=== PATIENT | male | born 1940 | race Caucasian/White ===

== ENCOUNTER 2018-10-10 07:10 | Emergency (ER) | payer MEDICARE, OTHER ==
[2018-10-10] MEDS ORDERED: ACETAMINOPHEN 325 MG TABLET PO STA (07:33)
--- NOTE | 2018-10-10 07:42 | ED Physician Documentation ---
PD HPI URI - Stated complaint Stated Complaint: COUGH/CONGESTED - Chief complaint Chief Complaint: Resp - History obtained from History obtained from: Patient, Family () - History of Present Illness Timing - onset: How many weeks ago (1) Timing duration: Weeks (1) Timing details: Still present Associated symptoms: Nasal congestion, Productive cough Similar symptoms before: Diagnosis (URI) Recently seen: Clinic (Was seen by PMD 2 days ago and was prescribed guaifenesin AC.) - Additional information Additional information: The patient is a 78-year-old male who presents with "a nasty cold" that has been going on for 1 week. He reports productive cough and nasal congestion. He denies fever, chest pain, shortness of breath, headache, or sore throat. He has a history of similar symptoms, the last time being 3 or 4 years ago. His cough has been so bad he has not been able to sleep much for the past 5 days. Review of Systems Constitutional: reports: Fatigue. denies: Fever, Myalgias Eyes: denies: Discharge Ears: denies: Ear pain Nose: reports: Congestion Throat: denies: Sore throat Cardiac: denies: Chest pain / pressure Respiratory: reports: Cough. denies: Dyspnea GI: denies: Abdominal Pain, Nausea, Vomiting : denies: Dysuria Skin: denies: Rash Musculoskeletal: denies: Extremity swelling Neurologic: denies: Headache PD PAST MEDICAL HISTORY - Past Medical History Cardiovascular: Hypertension, [place] Respiratory: None Endocrine/Autoimmune: None GI: None : Benign prostate hypertrophy HEENT: Chronic vision loss, Chronic hearing loss Psych: None Musculoskeletal: Osteoarthritis Derm: None - Past Surgical History Past Surgical History: Yes General: Hiatal hernia repair Cardiovascular: Coronary stent - Present Medications Home Medications: Ambulatory Orders Medication Instructions Recorded Confirmed Clopidogrel [Plavix] 75 mg PO DAILY 10/15/13 11/03/14 Lisinopril 20 mg PO DAILY 10/15/13 11/03/14 Simvastatin 40 mg PO DAILY 10/15/13 11/03/14 Tamsulosin [Flomax] 0.4 mg PO DAILY 10/15/13 11/03/14 Benzonatate [Tessalon Perle] 100 - 200 mg PO TID PRN #30 capsule 10/10/18 - Allergies Allergies/Adverse Reactions: Allergies Allergy/AdvReac Type Severity Reaction Status Date / Time No Known Drug Allergies Allergy Verified 10/10/18 07:19 - Social History Does the pt smoke?: No Smoking Status: Never smoker Does the pt drink ETOH?: No Does the pt have substance abuse?: No - Immunizations Immunizations are current?: Yes - POLST Patient has POLST: No PD ED PE NORMAL - Vitals Vital signs reviewed: Yes (Borderline hypertension initially.) - General General: Alert and oriented X 3, Well developed/nourished - HEENT HEENT: Atraumatic, EOMI, Pharynx benign, Other (Conjunctiva are injected appearing bilaterally.) - Neck Neck: Supple, no meningeal sign, No adenopathy, No JVD - Cardiac Cardiac: RRR - Respiratory Respiratory: Clear bilaterally, Other (Cough, without wheezing, rales or rhonchi.) - Abdomen Abdomen: Soft, Non tender - Back Back: No CVA TTP - Derm Derm: No rash - Extremities Extremities: No edema, No calf tenderness / cord - Neuro Neuro: Alert and oriented X 3, No motor deficit, Normal speech Results - Vitals Vitals: Vital Signs - 24 hr 10/10/18 10/10/18 07:16 07:42 Temperature 37.2 C Heart Rate 84 Respiratory 20 Rate Blood Pressure 143/84 H 153/86 H O2 Saturation 97 Oxygen O2 Source Room air - Labs Labs: Laboratory Tests 10/10/18 07:37 Influenza A (Rapid) Negative Influenza B (Rapid) Negative - Rads (name of study) CXR Radiology: Prelim report reviewed, EMP read contemporaneously, See rad report (No radiographic evidence of acute cardiopulmonary disease.) PD MEDICAL DECISION MAKING - ED course Complexity details: reviewed old records, reviewed results, re-evaluated patient, considered differential, d/w patient, d/w family ED course: The patient's presentation is most consistent with viral respiratory infection. Influenza swab is negative, and chest x-ray reveals no acute infiltrate or effusion. Treatment in the emergency department included administration of acetaminophen 650 mg orally. I discussed with him and his the expected course of illness, symptomatic treatment and outpatient follow-up, as well as potentially worrisome signs or symptoms that should prompt reevaluation in the emergency department. He is being discharged with a prescription for Tessalon. Departure - Departure Disposition: 01 Home, Self Care Clinical Impression: Viral URI with cough Condition: Stable Instructions: ED URI Viral Follow-Up: Dorian Byrd MD [Provider Admit Priv/Credential] - Prescriptions: Benzonatate [Tessalon Perle] 100 - 200 mg PO TID PRN #30 capsule PRN Reason: Cough Comments: Your symptoms are most consistent with a viral upper respiratory infection. Antibiotics are not clinically indicated for this type of viral infection. Treatment should be geared toward managing symptoms: Drink plenty of fluids. Use Tylenol or ibuprofen as needed for fever or discomfort. You can use Tessalon as prescribed if needed for cough. Wash your hands frequently, and cover your cough. Follow up with your primary physician, or return to the emergency department, if not improving within 1-2 weeks. Return to the emergency department if you develop increasing difficulty breathing, or otherwise worsening symptoms.
[2018-10-10 07:44] VITALS: BP 153/86
--- NOTE | 2018-10-10 08:35 | XRAY Report ---
Reason: productive cough Procedure Date: 10/10/2018 Accession Number: [id number] / [id number] Procedure: XR - Chest 2 View X-Ray CPT Code: 94830 FULL RESULT: EXAM: CHEST RADIOGRAPHY EXAM DATE: 10/10/2018 08:23 AM. CLINICAL HISTORY: Productive cough. COMPARISON: 10/15/2013 9:42 PM. TECHNIQUE: 2 views. FINDINGS: Lungs/Pleura: No focal opacities evident. No pleural effusion. No pneumothorax. Normal volumes. Mediastinum: Heart and mediastinal contours are unremarkable. Stable mild ectasia of the descending thoracic aorta. Other: None. IMPRESSION: No radiographic evidence of acute cardiopulmonary disease. RADIA
== END 2018-10-10 09:22 | disposition home or self-care (01) ==
LOC: ED 07:10
DX: J06.9 Acute upper respiratory infection, unspecified (principal); I10 Essential (primary) hypertension; Z79.02 Long term (current) use of antithrombotics/antiplatelets
CPT/HCPCS: 71046; 87275; 87276; 99283; A9270

== ENCOUNTER 2019-11-06 10:07 | Outpatient (CLI) | payer MEDICARE, OTHER ==
[2019-11-06 10:31] LABS: BASOPHILS % (AUTO) 0.5 %; EOSINOPHILS # (AUTO) 0.2 10^3/uL (0.0-0.7); EOSINOPHILS % (AUTO) 3.4 %; HGB - HEMOGLOBIN 13.8 g/dL (14.0-18.0); LYMPHOCYTES # (AUTO) 1.1 10^3/uL (1.5-3.5); LYMPHOCYTES % (AUTO) 17.3 %; MEAN CORPUSCULAR HEMOGLOBIN 33.7 pg (27.0-31.0); MEAN CORPUSCULAR HGB CONC 33.3 g/dL (32.0-36.0); MEAN CORPUSCULAR VOLUME 101.5 fL (80.0-94.0); MEAN PLATELET VOLUME 10.6 fL (7.4-11.4); MONOCYTES # (AUTO) 0.5 10^3/uL (0.0-1.0); MONOCYTES % (AUTO) 8.3 %; NEUTROPHILS # (AUTO) 4.6 10^3/uL (1.5-6.6); NEUTROPHILS % (AUTO) 70.2 %; PLT - PLATELET COUNT 190 10^3/uL (130-450); RED BLOOD COUNT 4.09 10^6/uL (4.70-6.10); RED CELL DISTRIBUTION WIDTH 13.5 % (12.0-15.0); WHITE BLOOD COUNT 6.5 x10^3/uL (4.8-10.8)
[2019-11-06 10:44] LABS: ALBUMIN/GLOBULIN RATIO 1.5 (1.0-2.2); ALKALINE PHOSPHATASE 84 IU/L (42-121); ALT ALANINE AMINOTRANSFERASE 18 IU/L (10-60); AST ASPARTATE AMINOTRANSFERASE 22 IU/L (10-42); BILIRUBIN,TOTAL 0.8 mg/dL (0.2-1.0); BUN - BLOOD UREA NITROGEN 34 mg/dL (6-20); CALCIUM 8.4 mg/dL (8.5-10.3); CARBON DIOXIDE - CO2 28 mmol/L (21-32); CHLORIDE 102 mmol/L (101-111); CHOL/HDL RATIO 3.6 (<5.0); CHOLESTEROL 214 mg/dL; CREATININE 0.9 mg/dL (0.6-1.2); GLUCOSE 105 mg/dL (70-100); HDL CHOLESTEROL 59 mg/dL; LDL CHOLESTEROL,CALCULATED 143 mg/dL; LDL/HDL RATIO 2.4 (<3.6); SODIUM 136 mmol/L (135-145); TOTAL PROTEIN 6.7 g/dL (6.7-8.2); VLDL CHOLESTEROL 12 mg/dL
== END 2019-11-06 10:08 | disposition home or self-care (01) ==
LOC: LAB 10:07
PROVIDERS: ATTEND Internal Medicine Cardiovascular Disease
DX: I25.10 Atherosclerotic heart disease of native coronary artery without angina pectoris (principal); G45.4 Transient global amnesia
CPT/HCPCS: 36415; 80053; 80061; 83721; 85025

== ENCOUNTER 2019-11-21 08:51 | Outpatient (CLI) | payer MEDICARE, OTHER ==
[2019-11-21] MEDS ORDERED: IOVERSOL 320 100 ML VIAL IVP ONE ×2 (09:01→09:30)
--- NOTE | 2019-11-21 13:01 | CT Report ---
Reason: TRANSIENT GLOBAL AMNESIA Procedure Date: 11/21/2019 Accession Number: [id number] / [id number] Procedure: CT - ANGIO HEAD W/WO CPT Code: Final Report FULL RESULT: EXAM: CT ANGIOGRAM HEAD. CT SCAN OF THE HEAD WITHOUT AND WITH CONTRAST. EXAM DATE: 11/21/2019 09:29 AM CLINICAL HISTORY: 79-year-old man with transient global amnesia. COMPARISON: None. TECHNIQUE: - CT Scan Head: Using a multidetector scanner, axial images were acquired from the foramen magnum to the skull vertex prior to and following contrast administration. - CT Angiogram: Using a multidetector scanner, high-resolution axial images were acquired from the skull base through vertex following rapid infusion of intravenous contrast. Reformats: Multiplanar MIP reformats were reconstructed. NASCET criteria used for stenosis measurement. IV Contrast: 80 cc OPTIRAY 320. In accordance with CT protocol optimization, one or more of the following dose reduction techniques were utilized for this exam: automated exposure control, adjustment of mA and/or KV based on patient size, or use of iterative reconstructive technique. FINDINGS: NONCONTRAST HEAD: Parenchyma: No evidence of acute infarct, hemorrhage, or mass lesion. Irregular hypoattenuation is present in the left thalamus and overlying singer radiata, suspicious for remote infarct. There is also mild to moderate hypoattenuation in the periventricular and deep cerebral white matter, most consistent with sequelae of chronic small vessel ischemic disease. Ventricles and Extra-axial Spaces: Ventricles are symmetric and normal in size for age. No extra-axial hemorrhage or fluid collection. Orbits: Unremarkable except for left-sided lens replacement surgery. Sinuses: Mild mucosal thickening is present in the maxillary sinuses bilaterally. Mastoid air cells are clear. Extracranial Soft Tissues and Bones: Soft tissues are unremarkable. No fractures. CTA HEAD: RIGHT: - Visualized Internal Carotid: Patent without significant stenosis or aneurysm. There is mild atherosclerotic plaque along the siphon. - Anterior Cerebral: Patent without significant stenosis or aneurysm. - Middle Cerebral: Patent without significant stenosis or aneurysm. Calcified atherosclerotic plaque is present along the distal M1 segment and bifurcation. - Posterior Cerebral: Patent without significant stenosis or aneurysm. - Posterior Communicating: Patent. No aneurysm. - Visualized Vertebral: Patent without significant stenosis or dissection. The PICA is patent. LEFT: - Visualized Internal Carotid: Patent without significant stenosis or aneurysm. There is mild atherosclerotic plaque along the siphon. - Anterior Cerebral: Patent without significant stenosis or aneurysm. - Middle Cerebral: Patent without aneurysm. There is moderate stenosis (50-70% luminal narrowing) of the proximal temporal M2 branch (for example, image 67, series 13). Calcified atherosclerotic plaque is present along the M1 segment. - Posterior Cerebral: Patent without significant stenosis or aneurysm. - Posterior Communicating: Patent. No aneurysm. - Visualized Vertebral: Patent without significant stenosis or dissection. Scattered calcified atherosclerotic plaque is present along the intradural segment. The left vertebral artery is dominant. The PICA is patent, supplied as an AICA-PICA complex. CENTRAL: - Anterior Communicating: Patent. No aneurysm. - Basilar: Patent without significant stenosis, dissection, or aneurysm. POSTCONTRAST HEAD: No abnormal enhancement. IMPRESSION: CT Head: 1. No acute intracranial abnormality. Specifically, no evidence of acute infarct, hemorrhage, or mass lesion. 2. Irregular defect in the right thalamus and overlying singer radiata, suspicious for remote lacunar infarct. 3. Moderate white matter changes, most consistent with sequelae of chronic small vessel ischemic disease. CTA Head: 1. Moderate stenosis (this is 50-70% luminal narrowing) of the proximal left MCA temporal M2 branch. 3. Scattered atherosclerotic plaque along the intracranial carotid arteries, bilateral MCAs, and left vertebral artery. RADIA
--- NOTE | 2019-11-21 13:04 | CT Report ---
Reason: TRANSIENT GLOBAL AMNESIA Procedure Date: 11/21/2019 Accession Number: [id number] / [id number] Procedure: CT - ANGIO NECK W CPT Code: Final Report FULL RESULT: EXAM: CT ANGIOGRAM NECK EXAM DATE: 11/21/2019 09:29 AM. CLINICAL HISTORY: 79-year-old man with transient global amnesia. COMPARISON: None. TECHNIQUE: Routine axial helical imaging was performed from the skull base through the aortic arch. Reconstructions: Routine multiplanar 3D MIP reconstructions. IV Contrast: OPTIRAY 320. Evaluation of arterial stenosis is based on a NASCET method of measurement. In accordance with CT protocol optimization, one or more of the following dose reduction techniques were utilized for this exam: automated exposure control, adjustment of mA and/or KV based on patient size, or use of iterative reconstructive technique. FINDINGS: RIGHT: - Common and Internal Carotid: Patent without signficant stenosis. Calcified atherosclerotic plaque is present at the bifurcation. Stenosis by NASCET criteria: 0%. Scattered calcified atherosclerotic plaque is also present along the proximal and distal cervical ICA. No evidence of dissection. - External Carotid: Unremarkable. - Vertebral: Patent without significant stenosis. No evidence of dissection. LEFT: - Common and Internal Carotid: Patent without signficant stenosis. Calcified atherosclerotic plaque is present at the bifurcation and proximal cervical ICA. Stenosis by NASCET criteria: 0%. No evidence of dissection. - External Carotid: Unremarkable. - Vertebral: Patent without significant stenosis. Left vertebral artery is dominant. No evidence of dissection. SOFT TISSUES AND BONES: Visualized soft tissues are unremarkable. Lung apices are clear. No evidence of acute fracture or malalignment of the cervical spine, but there are multilevel degenerative changes. IMPRESSION: 1. Carotid and vertebral arteries are patent without significant stenosis or dissection. RADIA
== END 2019-11-21 08:52 | disposition home or self-care (01) ==
LOC: DI 08:51
PROVIDERS: ATTEND Internal Medicine Cardiovascular Disease
DX: R93.0 Abnormal findings on diagnostic imaging of skull and head, not elsewhere classified (principal); I66.02 Occlusion and stenosis of left middle cerebral artery; I65.23 Occlusion and stenosis of bilateral carotid arteries; I67.2 Cerebral atherosclerosis; I25.10 Atherosclerotic heart disease of native coronary artery without angina pectoris
CPT/HCPCS: 70496; 70498; Q9967

== ENCOUNTER 2020-02-17 09:05 | Outpatient (CLI) | payer MEDICARE, OTHER ==
[2020-02-17 09:34] LABS: CHOL/HDL RATIO 2.6 (<5.0); CHOLESTEROL 138 mg/dL; HDL CHOLESTEROL 54 mg/dL; LDL CHOLESTEROL,CALCULATED 73 mg/dL; LDL/HDL RATIO 1.4 (<3.6); VLDL CHOLESTEROL 11 mg/dL
== END 2020-02-17 09:06 | disposition home or self-care (01) ==
LOC: LAB 09:05
PROVIDERS: ATTEND Internal Medicine Cardiovascular Disease
DX: E78.49 Other hyperlipidemia (principal)
CPT/HCPCS: 36415; 80061; 83721

== ENCOUNTER 2020-03-08 13:43 | Outpatient (CLI) | payer MEDICARE, OTHER | END 2020-03-08 13:44 | disposition home or self-care (01) | LOC: COV 13:43 | PROVIDERS: ATTEND Family Medicine | DX: Z20.828 Contact with and (suspected) exposure to other viral communicable diseases (principal) ==

== ENCOUNTER 2020-05-14 09:38 | Outpatient (CLI) | payer MEDICARE, OTHER | END 2020-05-14 09:39 | disposition home or self-care (01) | LOC: LAB 09:38 | PROVIDERS: ATTEND Internal Medicine Cardiovascular Disease | DX: I25.10 Atherosclerotic heart disease of native coronary artery without angina pectoris (principal); I10 Essential (primary) hypertension | CPT/HCPCS: 80048 ==

== ENCOUNTER 2021-04-03 13:07 | Emergency (ER) | payer MEDICARE, OTHER ==
[2021-04-03 13:40] LABS: BASOPHILS % (AUTO) 0.4 %; EOSINOPHILS # (AUTO) 0.1 10^3/uL (0.0-0.7); EOSINOPHILS % (AUTO) 1.3 %; HCT - HEMATOCRIT 40.5 % (42.0-52.0); HGB - HEMOGLOBIN 13.6 g/dL (14.0-18.0); LYMPHOCYTES # (AUTO) 0.9 10^3/uL (1.5-3.5); LYMPHOCYTES % (AUTO) 12.5 %; MEAN CORPUSCULAR HEMOGLOBIN 33.9 pg (27.0-31.0); MEAN CORPUSCULAR HGB CONC 33.6 g/dL (32.0-36.0); MEAN PLATELET VOLUME 10.4 fL (7.4-11.4); MONOCYTES # (AUTO) 0.5 10^3/uL (0.0-1.0); MONOCYTES % (AUTO) 6.7 %; NEUTROPHILS # (AUTO) 5.9 10^3/uL (1.5-6.6); NEUTROPHILS % (AUTO) 78.7 %; PLT - PLATELET COUNT 185 10^3/uL (130-450); RED BLOOD COUNT 4.01 10^6/uL (4.70-6.10); RED CELL DISTRIBUTION WIDTH 13.5 % (12.0-15.0); WHITE BLOOD COUNT 7.5 x10^3/uL (4.8-10.8)
--- NOTE | 2021-04-03 13:57 | XRAY Report ---
PROCEDURE: Chest 1 View X-Ray INDICATIONS: Chest pain TECHNIQUE: One view of the chest was acquired. COMPARISON: Chest radiograph 10/10/2018 FINDINGS: Surgical changes and devices: None. Lungs and pleura: No pleural effusions or pneumothorax. Chronic lung markings are seen bilaterally. No acute cardiopulmonary opacity is seen. Mediastinum: Mediastinal contours appear normal. Heart size is normal. Bones and chest wall: No suspicious bony lesions. Overlying soft tissues appear unremarkable. IMPRESSION: No acute cardiopulmonary abnormality. Reviewed by: Joe Harrington MD on 04/03/2021 1:56 PM PDT Approved by: Joe Harrington MD on 04/03/2021 1:56 PM PDT Station ID: [id number]
[2021-04-03 13:58] LABS: ALBUMIN 4.4 g/dL (3.2-5.5); ALBUMIN/GLOBULIN RATIO 1.8 (1.0-2.2); BILIRUBIN,TOTAL 0.9 mg/dL (0.2-1.0); POTASSIUM 4.5 mmol/L (3.5-5.0); TOTAL PROTEIN 6.8 g/dL (6.7-8.2)
--- NOTE | 2021-04-03 15:50 | ED Physician Documentation ---
History of Present Illness - Stated complaint Stated Complaint: CHEST PX - Chief complaint Chief Complaint: Cardiac - History obtained from History obtained from: Patient - Additonal information Additional information: Patient comes emergency department chief complaint of left chest discomfort with radiation to left shoulder intermittently over the last week. Patient states that the symptoms are very random and he usually notices them when he stops being active and does not have anything else going on. He denies any onset or worsening of the symptoms with exertion, even with walking around his house or going up the stairs. He denies any associated symptoms such as shortness of breath, nausea, lightheadedness, or facial sweating. The patient is pain-free currently. He states her symptoms are not really pain but just a "awareness" of his shoulder and arm being there. The worst the discomfort of her is is about 2 out of 10. Nothing makes it better or worse. He has a history of coronary josé miguel ry disease and had a stent placed 20 years ago, and regular Jaswant follows with Dr. Mercado of cardiology. He states he has been prescribed nitro in the past but has never taken it. Patient denies any dyspnea on exertion. No swelling in his lower extremities. He states he otherwise feels fairly well. Patient thinks his next appointment with Dr. Mercado is in about a month. Review of Systems Ten Systems: 10 systems reviewed and negative Constitutional: reports: Reviewed and negative Eyes: reports: Reviewed and negative Ears: reports: Reviewed and negative Nose: reports: Reviewed and negative Throat: reports: Reviewed and negative Cardiac: reports: Chest pain / pressure Respiratory: reports: Reviewed and negative GI: reports: Reviewed and negative : reports: Reviewed and negative Skin: reports: Reviewed and negative Musculoskeletal: reports: Reviewed and negative Neurologic: reports: Reviewed and negative Psychiatric: reports: Reviewed and negative Endocrine: reports: Reviewed and negative Immunocompromised: reports: Reviewed and negative PD PAST MEDICAL HISTORY - Past Medical History Cardiovascular: Hypertension, [place] Respiratory: None Endocrine/Autoimmune: None GI: None : Benign prostate hypertrophy HEENT: Chronic vision loss, Chronic hearing loss Psych: None Musculoskeletal: Osteoarthritis Derm: None - Past Surgical History Past Surgical History: Yes General: Hiatal hernia repair Cardiovascular: Coronary stent - Present Medications Home Medications: Ambulatory Orders Medication Instructions Recorded Confirmed Clopidogrel [Plavix] 75 mg PO DAILY 10/15/13 11/03/14 Lisinopril 20 mg PO DAILY 10/15/13 11/03/14 Simvastatin 40 mg PO DAILY 10/15/13 11/03/14 Tamsulosin [Flomax] 0.4 mg PO DAILY 10/15/13 11/03/14 Benzonatate [Tessalon Perle] 100 - 200 mg PO TID PRN #30 capsule 10/10/18 Nitroglycerin [Nitrostat] 0.4 mg SL Q5MIN PRN #20 tablet 04/03/21 - Allergies Allergies/Adverse Reactions: Allergies Allergy/AdvReac Type Severity Reaction Status Date / Time No Known Drug Allergies Allergy Verified 04/03/21 13:14 - Social History Does the pt smoke?: No Smoking Status: Never smoker Does the pt drink ETOH?: No Does the pt have substance abuse?: No - Immunizations Immunizations are current?: Yes - POLST Patient has POLST: No PD ED PE NORMAL - Vitals Vital signs reviewed: Yes - General General: Alert and oriented X 3, No acute distress, Well developed/nourished - HEENT HEENT: Atraumatic, PERRL, EOMI, Moist mucous membranes - Neck Neck: Supple, no meningeal sign - Cardiac Cardiac: RRR, No murmur, Strong equal pulses - Respiratory Respiratory: No respiratory distress, Clear bilaterally - Abdomen Abdomen: Soft, Non tender, Non distended - Derm Derm: Normal color, Warm and dry, No rash - Extremities Extremities: No deformity, No edema, No calf tenderness / cord - Neuro Neuro: Alert and oriented X 3, medical coder 2-12 intact, Normal speech - Psych Psych: Normal mood, Normal affect Results - Vitals Vitals: Vital Signs - 24 hr 04/03/21 04/03/21 04/03/21 13:14 15:55 16:46 Temperature 36.5 C Heart Rate 68 59 L 60 Respiratory 16 18 21 Rate Blood Pressure 124/68 152/83 H 135/76 H O2 Saturation 97 99 100 Oxygen O2 Source Room air - EKG (time done) 1312 Rate: Rate (enter#) (68) Rhythm: NSR [place]: Normal Intervals: Other (IVCD) QRS: Normal Ischemia: Other (Diffuse ST elevation secondary to interventricular conduction delay.) Compare to prior EKG: Changed from prior EKG (Most recent available is in 2013. Intraventricular conduction delay not present then.) Computer interpretation: Agree with computer - Labs Labs: Laboratory Tests 04/03/21 04/03/21 04/03/21 13:35 13:35 13:35 WBC 7.5 RBC 4.01 L Hgb 13.6 L Hct 40.5 L MCV 101.0 H MCH 33.9 H MCHC 33.6 RDW 13.5 Plt Count 185 MPV 10.4 Neut # (Auto) 5.9 Lymph # (Auto) 0.9 L [place] # (Auto) 0.5 Eos # (Auto) 0.1 Baso # (Auto) 0.0 Absolute Nucleated RBC 0.00 Nucleated RBC % 0.0 Sodium 139 Potassium 4.5 Chloride 101 Carbon Dioxide 27 Anion Gap 11.0 BUN 25 H Creatinine 1.0 Estimated GFR (MDRD) 72 L Glucose 112 H Calcium 9.0 Total Bilirubin 0.9 AST 22 ALT 23 Alkaline Phosphatase 77 Troponin I High Sens 6.7 Total Protein 6.8 Albumin 4.4 Globulin 2.4 Albumin/Globulin Ratio 1.8 Lipase 27 04/03/21 15:53 WBC RBC Hgb Hct MCV MCH MCHC RDW Plt Count MPV Neut # (Auto) Lymph # (Auto) [place] # (Auto) Eos # (Auto) Baso # (Auto) Absolute Nucleated RBC Nucleated RBC % Sodium Potassium Chloride Carbon Dioxide Anion Gap BUN Creatinine Estimated GFR (MDRD) Glucose Calcium Total Bilirubin AST ALT Alkaline Phosphatase Troponin I High Sens 7.5 Total Protein Albumin Globulin Albumin/Globulin Ratio Lipase - Rads (name of study) chest XR Radiology: Final report received, EMP read indepedently, See rad report (Negative) PD MEDICAL DECISION MAKING - ED course Complexity details: reviewed results, re-evaluated patient, considered differential, d/w patient ED course: Patient was worked up with labs, EKG, and chest x-ray all of which were unremarkable, including initial troponin. Repeat troponin was also sent and negative. Patient was asymptomatic in the emergency department. We have discussed that he should plan to call Dr. Mercado's office first thing tomorrow and make sure his appointment is moved up to within the next couple of weeks. I will prescribe him nitroglycerin, which you may take when he gets the discomfort. Patient understands that if his pain in any way begins to significantly worsen, he should return immediately to the emergency department. Departure - Departure Disposition: 01 Home, Self Care Clinical Impression: Chest pain Qualifiers: Chest pain type: unspecified Qualified Code(s): R07.9 - Chest pain, unspecified Condition: Stable Instructions: ED Chest Pain Atypical Unkn Cause Prescriptions: Nitroglycerin [Nitrostat] 0.4 mg SL Q5MIN PRN #20 tablet PRN Reason: Chest Pain Comments: Your labs, EKG, and chest x-ray all look good. Your repeat cardiac enzymes also are normal. Please call Dr. Mercado's office first thing tomorrow to reschedule your follow-up appointment for within the next couple of weeks instead of a month or two from now. You may take the nitroglycerin as needed for your di scomfort. If your pain gets worse and persists, please return to the emergency department. Discharge Date/Time: 04/03/21 16:47
[2021-04-03 16:48] VITALS: BP 135/76
== END 2021-04-03 16:47 | disposition home or self-care (01) ==
LOC: ED 13:07
DX: R07.9 Chest pain, unspecified (principal)
CPT/HCPCS: 36415; 80053; 83690; 84484; 85025; 93005; 99284

== ENCOUNTER 2021-04-24 16:14 | Outpatient (CLI) | payer MEDICARE, OTHER | END 2021-04-24 16:15 | disposition critical access hospital (66) | LOC: EMS 16:14 | DX: Z04.3 Encounter for examination and observation following other accident (principal) | CPT/HCPCS: A0425; A0429 ==

== ENCOUNTER 2021-04-24 16:36 | Inpatient (IN) | payer MEDICARE, OTHER ==
--- NOTE | 2021-04-24 16:49 | ED Physician Documentation ---
PD HPI LOWER EXT INJURY - Stated complaint Stated Complaint: GLF - Chief complaint Chief Complaint: Trauma Ext - History obtained from History obtained from: Patient, EMS - History of Present Illness PD HPI LOW EXT INJURY LOCATION: Left, Hip Type of injury: Fall Where injury occurred: Home Timing - onset: How many hours ago (1) Timing - duration: Hours (1) Pain level max: 7 Pain level now: 3 Improved by: Rest, Ice, Immobilization Worsened by: Moving, Palpating Associated symptoms: No: Weakness, Numbness, Tingling, Swelling Contributing factors: No: Anticoagulated, Prior ortho surgery Recently seen: Not recently seen - Additional information Additional information: Patient is an 81-year-old male who presents to the emergency department after falling while walking back to his car today, tripped and fell. He states landed on his left hip and has left hip pain. Worse with movement, better with rest. Brought in by EMS. Patient declined any pain medication or IV en route. Patient is not on blood thinners. Did not strike his head. The only pain is to the left hip. Review of Systems Ten Systems: 10 systems reviewed and negative Constitutional: denies: Fever, Chills Cardiac: denies: Chest pain / pressure Respiratory: denies: Cough GI: denies: Nausea, Vomiting, Diarrhea Skin: denies: Rash Musculoskeletal: denies: Neck pain, Back pain Neurologic: denies: Focal weakness, Numbness, Headache PD PAST MEDICAL HISTORY - Past Medical History Cardiovascular: Hypertension, [place] Respiratory: None Endocrine/Autoimmune: None GI: None : Benign prostate hypertrophy HEENT: Chronic vision loss, Chronic hearing loss Psych: None Musculoskeletal: Osteoarthritis Derm: None - Past Surgical History Past Surgical History: Yes General: Hiatal hernia repair Cardiovascular: Coronary stent - Present Medications Home Medications: Ambulatory Orders Medication Instructions Recorded Confirmed Lisinopril 20 mg PO DAILY 10/15/13 11/03/14 Tamsulosin [Flomax] 0.4 mg PO DAILY 10/15/13 11/03/14 Nitroglycerin [Nitrostat] 0.4 mg SL Q5MIN PRN #20 tablet 04/03/21 Rosuvastatin Calcium [Crestor] 10 mg PO QPM 04/24/21 - Allergies Allergies/Adverse Reactions: Allergies Allergy/AdvReac Type Severity Reaction Status Date / Time No Known Drug Allergies Allergy Verified 04/24/21 16:41 - Social History Does the pt smoke?: No Smoking Status: Never smoker Does the pt drink ETOH?: No Does the pt have substance abuse?: No - Immunizations Immunizations are current?: Yes - POLST Patient has POLST: No PD ED PE NORMAL - Vitals Vital signs reviewed: Yes - General General: Alert and oriented X 3, No acute distress - HEENT HEENT: Atraumatic, PERRL, Moist mucous membranes - Neck Neck: Supple, no meningeal sign, No bony TTP - Cardiac Cardiac: RRR, Strong equal pulses - Respiratory Respiratory: No respiratory distress, Clear bilaterally - Abdomen Abdomen: Soft, Non tender, Non distended - Back Back: No spinal TTP - Derm Derm: Warm and dry - Extremities Extremities: No deformity, Other (Tenderness to palpation over the left greater trochanter. Leg held in flexion. Limited range of motion secondary to pain. Neurovascularly intact. Pelvis stable. Otherwise normal exam of the extremities) - Neuro Neuro: Alert and oriented X 3, ld teacher 2-12 intact, No motor deficit, No sensory deficit, Normal speech - Psych Psych: Normal mood, Normal affect Results - Vitals Vitals: Vital Signs - 24 hr 04/24/21 16:41 Temperature 36.6 C Heart Rate 65 Respiratory 18 Rate Blood Pressure 159/85 H O2 Saturation 99 Oxygen O2 Source Room air - EKG (time done) 1744 Rate: Rate (enter#) Rhythm: NSR Intervals: LBBB - Labs Labs: Laboratory Tests 04/24/21 17:42 WBC 8.1 RBC 4.04 L Hgb 13.7 L Hct 40.3 L MCV 99.8 H MCH 33.9 H MCHC 34.0 RDW 13.3 Plt Count 166 MPV 10.5 Neut # (Auto) 6.3 Lymph # (Auto) 1.0 L [place] # (Auto) 0.6 Eos # (Auto) 0.2 Baso # (Auto) 0.0 Absolute Nucleated RBC 0.00 Nucleated RBC % 0.0 - Rads (name of study) L hip xray Radiology: Final report received, EMP read contemporaneously, See rad report (impacted L femoral neck fracture) cxr Radiology: Final report received, EMP read contemporaneously, See rad report (No acute abnormality) PD MEDICAL DECISION MAKING - ED course Complexity details: reviewed results, re-evaluated patient, considered differential, d/w patient, d/w residential sales consultant ED course: 81-year-old male with a mildly impacted left femoral neck fracture. Discussed with Dr. Vogel, orthopedics who recommends admission to the hospitalist for further care. He will consult on the patient and plan for OR repair. Pain well controlled. Neurovascular intact. Discussed the case with Dr. Saravia, hospitalist who accepts This document was made in part using voice recognition software. While efforts are made to proofread this document, sound alike and grammatical errors may occur. Departure - Departure Disposition: [facility] DC/Xfer Clinical Impression: Fracture of left hip Qualifiers: Encounter type: initial encounter Fracture type: closed Qualified Code(s): S72.002A - Fracture of unspecified part of neck of left femur, initial encounter for closed fracture Condition: Stable Discharge Date/Time: 04/24/21 18:21
[2021-04-24] MEDS ORDERED: PROMETHAZINE 25 MG/1 ML VIAL IM PRN (17:45)
[2021-04-24] MEDS ORDERED: ONDANSETRON ODT 4 MG TABLET TL PRN (17:45)
[2021-04-24] MEDS ORDERED: ACETAMINOPHEN 325 MG TABLET PO PRN (17:45)
[2021-04-24] MEDS ORDERED: SODIUM CHLORIDE FLUSH 0.9% 10 ML SYRINGE IVP PRN (17:45)
[2021-04-24] MEDS ORDERED: MORPHINE 2 MG/ML CARPUJECT IVP STA (17:55)
[2021-04-24 18:08] LABS: BASOPHILS % (AUTO) 0.4 %; EOSINOPHILS # (AUTO) 0.2 10^3/uL (0.0-0.7); EOSINOPHILS % (AUTO) 1.9 %; HCT - HEMATOCRIT 40.3 % (42.0-52.0); HGB - HEMOGLOBIN 13.7 g/dL (14.0-18.0); LYMPHOCYTES % (AUTO) 12.6 %; MEAN CORPUSCULAR HEMOGLOBIN 33.9 pg (27.0-31.0); MEAN CORPUSCULAR VOLUME 99.8 fL (80.0-94.0); MEAN PLATELET VOLUME 10.5 fL (7.4-11.4); MONOCYTES # (AUTO) 0.6 10^3/uL (0.0-1.0); MONOCYTES % (AUTO) 6.8 %; NEUTROPHILS # (AUTO) 6.3 10^3/uL (1.5-6.6); NEUTROPHILS % (AUTO) 77.7 %; PLT - PLATELET COUNT 166 10^3/uL (130-450); RED BLOOD COUNT 4.04 10^6/uL (4.70-6.10); RED CELL DISTRIBUTION WIDTH 13.3 % (12.0-15.0); WHITE BLOOD COUNT 8.1 x10^3/uL (4.8-10.8)
[2021-04-24 18:17] LABS: INR 1.1 (0.8-1.2); PT - PROTHROMBIN TIME 12.5 secs (9.9-12.6)
--- NOTE | 2021-04-24 18:22 | HISTORY & PHYSICAL EXAMINATION ---
Chief Complaint - Chief Complaint Chief Complaint: Left Hip Pain History of Present Illness - Admitted From Admitted From:: Emergency Department - History Obtained From Records Reviewed: ED History obtained from: Patient and Dr Fay Exam Limitations: None - History of Present Illness HPI Comment/Other: Kedar is an 81-year-old male, as of today (1940), who is a fairly healthy and active gentleman who fell while coming off the boat onto the dock and presumably landed on his left side and has sustained a left hip fracture. He presented to the emergency department for left hip pain.He has a past medical history sugge stive of coronary artery disease status post stent more than 10 years ago,Hyperlipidemia, hypertension, and BPH as well as a currently being worked up for left-sided foot drop and balance disturbance. Patient states he is currently in physical therapy for this problem. He has been seen by neurosevans nelson for the left foot drop but has not had surgery and was referred to physical therapy. He does not have a diagnosis yet. He is not sure if this contributed to the fall which led to him breaking his left hip. In the emergency room, his evaluation was inclusive of lab work, with results not yet available, and a hip x-ray, again with report not yet available but per Dr. Dumont, showing a impacted left femoral neck fracture. Orthopedic surgery was consulted by the ED, and has been accepted for surgery tomorrow and hospitalist service was requested to admit the patient.At the time of admission, EKG was not yet obtained, nor was Chest x-ray. History - Past Medical History Cardiovascular: reports: Hypertension, High cholesterol, Coronary artery disease, [place] Respiratory: reports: None Neuro: reports: Other (Left foot drop which is currently being worked up by neurosurgery) Endocrine/Autoimmune: reports: None GI: reports: None : reports: Benign prostate hypertrophy HEENT: reports: Chronic vision loss, Chronic hearing loss Psych: reports: None Musculoskeletal: reports: Osteoarthritis Derm: reports: None MRSA Hx?: No - Past Surgical History General: reports: Hiatal hernia repair Cardiovascular: reports: Coronary stent - POLST Patient has POLST: No Meds/Allgy - Home Medications Home Medications: Ambulatory Orders Medication Instructions Recorded Confirmed Clopidogrel [Plavix] 75 mg PO DAILY 10/15/13 11/03/14 Lisinopril 20 mg PO DAILY 10/15/13 11/03/14 Simvastatin 40 mg PO DAILY 10/15/13 11/03/14 Tamsulosin [Flomax] 0.4 mg PO DAILY 10/15/13 11/03/14 Benzonatate [Tessalon Perle] 100 - 200 mg PO TID PRN #30 capsule 10/10/18 Nitroglycerin [Nitrostat] 0.4 mg SL Q5MIN PRN #20 tablet 04/03/21 - Allergies Allergies/Adverse Reactions: Allergies Allergy/AdvReac Type Severity Reaction Status Date / Time No Known Drug Allergies Allergy Verified 04/24/21 16:41 Prior Level of Functionality: Ambulatory, active, exercises a couple of times a week, including water aerobics Exam - Vital Signs Reviewed Vital Signs: Yes Vital Signs: Vital Signs x48h Temp Pulse Resp BP Pulse Ox 04/24/21 18:11 58 L 16 154/82 H 100 04/24/21 16:41 36.6 C 65 18 159/85 H 99 - Physical Exam General Appearance: positive: No acute distress, Alert Eyes Bilateral: positive: Normal inspection, PERRL, EOMI ENT: positive: ENT inspection nml, Pharynx nml, No signs of dehydration Neck: positive: Nml inspection, Thyroid nml, No JVD Respiratory: positive: Chest non-tender, No respiratory distress, Breath sounds nml Cardiovascular: positive: Regular rate & rhythm, No murmur, No gallop Peripheral Pulses: positive: 2+ Abdomen: positive: Non-tender, No organomegaly, Nml bowel sounds, No distention Skin: positive: Color nml Extremities: positive: Nml appearance, No pedal edema, Other (Hip flexed, left knee flexed). negative: Pedal edema Conclusion/Plan - Problem List (1) Fracture of left hip Conclusion/Plan: Left hip fracture reviewed by orthopedic surgery Patient will be taken to the OR tomorrow Admit to [facility] N[facility] after midnight SCDs for anticoagulation until after surgery Given patient's history of CAD and age for risk ratification will check chest x- ray and EKG Qualifiers: Encounter type: initial encounter Fracture type: closed Qualified Code(s): S72.002A - Fracture of unspecified part of neck of left femur, initial encounter for closed fracture (2) CAD (coronary artery disease) Conclusion/Plan: Patient has a very good exercise tolerance and only remote history of single- vessel CAD EKG and chest x-ray are pending, but I do not anticipate any findings that would preclude the patient from proceeding to the operating room for left hip ORIF Resume aspirin postoperatively Follow-up EKG (3) HLD (hyperlipidemia) Conclusion/Plan: Resume home statin (4) BPH (benign prostatic hyperplasia) Conclusion/Plan: Continue Flomax (5) Left foot drop Conclusion/Plan: Patient reports this is being worked up by neurosurgery, who have not operated on him, and has been referred to outpatient physical therapy for this. May have contributed to the fall Evaluate with PT eval Primary work-up to be deferred for outpatient - Lab Results Fish Bones: 04/24/21 17:42 - Diagnostic Imaging Results Diagnostic Imaging Results: positive: Prelim report reviewed Core Measures - Anticipated LOS I expect patient to be DC'd or transferred within 96 hours.: Yes - DVT/VTE - Prophylaxis VTE/DVT Device ordered at admit?: Yes
[2021-04-24 18:23] LABS: ALBUMIN 4.4 g/dL (3.2-5.5); CALCIUM 9.2 mg/dL (8.5-10.3); POTASSIUM 4.7 mmol/L (3.5-5.0); TOTAL PROTEIN 6.6 g/dL (6.7-8.2)
[2021-04-24 18:24] LABS: PARTIAL THROMBOPLASTIN TIME 28.3 secs (24.9-33.3)
--- NOTE | 2021-04-24 18:26 | XRAY Report ---
PROCEDURE: Chest 1 View X-Ray INDICATIONS: L hip TECHNIQUE: One view of the chest was acquired. COMPARISON: 04/03/2021 FINDINGS: Surgical changes and devices: None. Lungs and pleura: No pleural effusions or pneumothorax. Lungs are clear. Mediastinum: Mediastinal contours appear normal. Heart size is normal. Bones and chest wall: No suspicious bony lesions. Overlying soft tissues appear unremarkable. Age- indeterminate posterior left upper rib fracture deformities. IMPRESSION: Chest without acute cardiopulmonary abnormalities. Reviewed by: Dharmesh Monson MD on 04/24/2021 6:25 PM PDT Approved by: Dharmesh Monson MD on 04/24/2021 6:25 PM PDT Station ID: [id number]
--- NOTE | 2021-04-24 18:53 | HISTORY & PHYSICAL EXAMINATION ---
HPI - Admitted From Admitted from: ED - History Obtained From History obtained from: Patient Exam limitations: Clinical condition - History of Present Illness Severity at the worst: reports: Severe HPI Comment/Other: This is a 81-year-old man referred by Dr. Sebastian Fay, emergency room [facility]. The patient was celebrating his 81st birthday today. He exited a sailboat onto a dock in [place], lost his balance and fell onto his left hip. He had immediate pain, unable to bear weight, brought to emergency room following fall. He was heading to a restaurant to have dinner just before the fall. He denies chest pain, shortness of breath, syncope or dizziness associated with the fall. He has no other areas of pain other than left groin. Any attempt at movement of the left hip causes pain. His hip pain on the left side is reduced by keeping his left hip flexed. He has a history of gait abnormality. He has difficulty with his balance. He has had a foot drop and tends to drag his left foot.He never was prescribed the AFO. He had a work-up for his neurologic problem and apparently has been identified as probably having a past stroke. He is on aspirin. He is also had a history of coronary artery disease and a coronary artery stent in the past. He does ambulate, mostly around home but does get out in the community with his . He denies previous problems with his hips. PMH/PSH - Past Medical History Cardiovascular: positive: Hypertension, High cholesterol, Coronary artery disease, [place] Respiratory: positive: None Neuro: positive: Other (Left foot drop which is currently being worked up by neurosurgery) Endocrine/Autoimmune: positive: None GI: positive: None : positive: Benign prostate hypertrophy HEENT: positive: Chronic vision loss, Chronic hearing loss Psych: positive: None Musculoskeletal: positive: Osteoarthritis Derm: positive: None MRSA Hx?: No - Past Surgical History General: positive: Hiatal hernia repair Cardiovascular: positive: Coronary stent Social & Family Hx - Social History Does the pt smoke?: No Smoking Status: Never smoker Does the pt drink ETOH?: No Does the pt have substance abuse?: No - POLST Patient has POLST: No Meds/Allgy - Home Medications Home Medications: Ambulatory Orders Medication Instructions Recorded Confirmed Lisinopril 20 mg PO DAILY 10/15/13 11/03/14 Tamsulosin [Flomax] 0.4 mg PO DAILY 10/15/13 11/03/14 Nitroglycerin [Nitrostat] 0.4 mg SL Q5MIN PRN #20 tablet 04/03/21 Rosuvastatin Calcium [Crestor] 10 mg PO QPM 04/24/21 - Allergies Allergies/Adverse Reactions: Allergies Allergy/AdvReac Type Severity Reaction Status Date / Time No Known Drug Allergies Allergy Verified 04/24/21 16:41 Exam - Vital Signs Vital Signs: Vital Signs x48h Temp Pulse Pulse Resp BP BP Pulse Ox 04/24/21 18:41 36.5 C 66 24 147/74 H 98 04/24/21 18:11 58 L 16 154/82 H 100 04/24/21 16:41 36.6 C 65 18 159/85 H 99 - Physical Exam General Appearance: positive: Mild distress Respiratory: positive: Chest non-tender, No respiratory distress, Other (pectus excavatum) Cardiovascular: positive: Regular rate & rhythm Peripheral Pulses: positive: 1+ Abdomen: positive: Non-tender Skin: positive: Color nml Extremities: negative: Other (Abnormalities limited to left hip with marked pain associated with any attempted passive movement left hip. There is no hematoma or focal tenderness about left thigh. Left knee is nontender. Left ankle is nontender.) Neurologic/Psychiatric: positive: Oriented x3, Mood/affect nml. negative: Motor nml (Dorsiflexion weakness left ankle, difficult to assess motor strength of left lower extremity otherwise.) Results - Lab Results Fish Bones: 04/24/21 17:42 04/24/21 18:00 Other Lab Results: Lab Results x24hrs 04/24/21 04/24/21 04/24/21 Range/Units 18:00 18:00 17:42 WBC 8.1 (4.8-10.8) x10^3/uL RBC 4.04 L (4.70-6.10) 10^6/uL Hgb 13.7 L (14.0-18.0) g/dL Hct 40.3 L (42.0-52.0) % MCV 99.8 H (80.0-94.0) fL MCH 33.9 H (27.0-31.0) pg MCHC 34.0 (32.0-36.0) g/dL RDW 13.3 (12.0-15.0) % Plt Count 166 (130-450) 10^3/uL MPV 10.5 (7.4-11.4) fL Neut # (Auto) 6.3 (1.5-6.6) 10^3/uL Lymph # (Auto) 1.0 L (1.5-3.5) 10^3/uL [place] # (Auto) 0.6 (0.0-1.0) 10^3/uL Eos # (Auto) 0.2 (0.0-0.7) 10^3/uL Baso # (Auto) 0.0 (0.0-0.1) 10^3/uL Absolute Nucleated RBC 0.00 x10^3/uL Nucleated RBC % 0.0 /100WBC PT 12.5 (9.9-12.6) secs INR 1.1 (0.8-1.2) APTT 28.3 (24.9-33.3) secs Sodium 141 (135-145) mmol/L Potassium 4.7 (3.5-5.0) mmol/L Chloride 103 (101-111) mmol/L Carbon Dioxide 27 (21-32) mmol/L Anion Gap 11.0 (6-13) BUN 31 H (6-20) mg/dL Creatinine 1.0 (0.6-1.2) mg/dL Estimated GFR (MDRD) 72 L (>89) Glucose 101 H (70-100) mg/dL Calcium 9.2 (8.5-10.3) mg/dL Total Bilirubin 1.0 (0.2-1.0) mg/dL AST 21 (10-42) IU/L ALT 23 (10-60) IU/L Alkaline Phosphatase 73 (42-121) IU/L Total Protein 6.6 L (6.7-8.2) g/dL Albumin 4.4 (3.2-5.5) g/dL Globulin 2.2 (2.1-4.2) g/dL Albumin/Globulin Ratio 2.0 (1.0-2.2) Lipase 33 (22-51) U/L - Diagnostic Imaging Results Diagnostic Imaging Results: negative: Other (X-rays independently visualized. The x-rays are not of optimal quality. There is a minimally displaced subcapital femoral neck fracture of the left hip. There appears to be slight shortening, slight varus on the AP view. The right hip shows degenerative joint disease with hip joint narrowing and) - Other Other Results/Comments: The right hip shows signs of osteoarthritis. There are no definite pelvic fractures noted Impression/Plan - Problem List Problem List: Mildly displaced femoral neck fracture left hip His comorbidity is coronary artery and cerebrovascular disease. He does have neurologic deficit and gait abnormality prior to fall. He has been going to physical therapy to help with his gait mechanics. I discussed treatment alternatives with him, both nonoperative and operative. He prefers operative treatment. The choice of surgery is between percutaneous screw fixation versus hemiarthroplasty. The pros and cons were discussed with him. I think his chances for 1 surgery are better with a hemiarthroplasty as the revision rate for screws in older people is up to 20%. I discussed the risks, goals and likelihood achieving goals, alternatives to surgery, disability and occasionally . His age and comorbidities placing him at increased risk for any treatment with regard to hip fractures, both nonoperative and operative. He will have a preoperative medical evaluation with tentative plan of performing a left hip hemiarthroplasty on 04/25/2021. He can have sequential compression device for deep venous thrombosis but does not need formal anticoagulation until after surgery. He is in agreement to proceeding with surgery.
[2021-04-24 19:14] LABS: B. PARAPERTUSSIS- RESP PCR PAN NOT DETECTED; B. PERTUSSIS- RESP PCR PANEL NOT DETECTED; C. PNEUMONIAE- RESP PCR PANEL NOT DETECTED; CORONAVIRUS 229E-RESP PCR NOT DETECTED; CORONAVIRUS HKU1-RESP PCR NOT DETECTED; CORONAVIRUS NL63-RESP PCR NOT DETECTED; CORONAVIRUS OC43-RESP PCR NOT DETECTED; HUMAN METAPNEUMOVIRUS NOT DETECTED; INFLUENZA A- RESP PCR PANEL NOT DETECTED; INFLUENZA B - RESP PCR PANEL NOT DETECTED; M. PNEUMONIAE- RESP PCR PANEL NOT DETECTED; PARAINFLUENZA VIRUS 1 NOT DETECTED; PARAINFLUENZA VIRUS 2 NOT DETECTED; PARAINFLUENZA VIRUS 3 NOT DETECTED; PARAINFLUENZA VIRUS 4 NOT DETECTED; RHINOVIRUS/ENTEROVIRUS NOT DETECTED; RSV- RESP PCR PANEL NOT DETECTED; SARS-CoV-2 -RESP PCR PANEL NOT DETECTED
[2021-04-24] MEDS: LACTATED RINGERS 1,000 ML IV SCH (19:40)
[2021-04-24] MEDS ORDERED: ZOLPIDEM 5 MG TABLET PO PRN (20:24)
[2021-04-24] MEDS: HEPARIN 5,000 UNIT/ML VIAL SUBQ SCH (21:13)
[2021-04-25] MEDS: MORPHINE 2 MG/ML CARPUJECT IVP PRN ×2 (00:40→19:46)
[2021-04-25] MEDS: SODIUM CHLORIDE FLUSH 0.9% 10 ML SYRINGE IVP SCH ×3 (01:12→17:35)
[2021-04-25 05:52] LABS: HCT - HEMATOCRIT 35.1 % (42.0-52.0); HGB - HEMOGLOBIN 11.8 g/dL (14.0-18.0); MEAN CORPUSCULAR HEMOGLOBIN 33.3 pg (27.0-31.0); MEAN CORPUSCULAR HGB CONC 33.6 g/dL (32.0-36.0); MEAN CORPUSCULAR VOLUME 99.2 fL (80.0-94.0); MEAN PLATELET VOLUME 10.5 fL (7.4-11.4); RED BLOOD COUNT 3.54 10^6/uL (4.70-6.10); RED CELL DISTRIBUTION WIDTH 13.3 % (12.0-15.0); WHITE BLOOD COUNT 8.9 x10^3/uL (4.8-10.8)
[2021-04-25 06:02] LABS: CALCIUM 8.3 mg/dL (8.5-10.3); CREATININE 0.9 mg/dL (0.6-1.2); POTASSIUM 4.3 mmol/L (3.5-5.0)
[2021-04-25] MEDS: HEPARIN 5,000 UNIT/ML VIAL SUBQ SCH (07:28)
[2021-04-25] MEDS: LACTATED RINGERS 1,000 ML IV SCH (08:35)
--- NOTE | 2021-04-25 09:09 | XRAY Report ---
PROCEDURE: Hip w/Pelvis 2-3V LT INDICATIONS: Fall, left hip pain TECHNIQUE: AP pelvis with lateral view(s) of the left hip(s). COMPARISON: None. FINDINGS: BONES/JOINTS: Subcapital cortical irregularity and sclerosis, compatible with a minimally displaced f racture of the femoral neck. No widening of the pubic symphysis. The sacroiliac joints are symmetric. The femoral heads are normal ly seated within the acetabulum. SOFT TISSUES: No focal abnormality. IMPRESSION: 1.Minimal displaced fracture of the left femoral neck. Reviewed by: Miguel Rosado MD on 04/24/2021 5:13 PM PDT Approved by: Miguel Rosado MD on 04/24/2021 5:13 PM PDT Station ID: [id number]
--- NOTE | 2021-04-25 11:27 | PHARMACY PROGRESS NOTE ---
- Best Possible Medication History Admit Date and Time: 04/24/21 8924 Processed by: Pharmacy Medication History completed: Yes Patient Interview: Completed Secondary Source(s): Pharmacy records, Insurance records As the person ultimately responsible for medication therapy, providers are able to order a medication from an existing home medication list in [facility] via the "Reconcile Routine" prior to Confirmation of that medication by physician support coordinator. Such practice is discouraged except when the physician, in their clinical judgment, deems that a medical need exists for a medication without regard to previous use.
--- NOTE | 2021-04-25 12:35 | ANESTHESIA ---
Pre-Anesthesia VS, & Labs - Diagnosis left hip fracture - Procedure left hip hemiarthroplasty Vital Signs: Temp Pulse Resp BP Pulse Ox 36.5 C 55 L 20 116/55 L 96 04/25/21 12:12 04/25/21 12:12 04/25/21 12:12 04/25/21 12:12 04/25/21 12:12 Height: 6 ft Weight (kg): 86 kg Body Mass Index: 25.7 BMI Classification: Overweight - NPO >8 hours - Lab Results Current Lab Results: Laboratory Tests 04/25/21 05:39: Sodium 135, Potassium 4.3, Chloride 99 L, Carbon Dioxide 28, Anion Gap 8.0, BUN 26 H, Creatinine 0.9, Estimated GFR (MDRD) 81 L, Glucose 115 H, Calcium 8.3 L 04/25/21 05:39: WBC 8.9, RBC 3.54 L, Hgb 11.8 L, Hct 35.1 L, MCV 99.2 H, MCH 33.3 H, MCHC 33.6, RDW 13.3, Plt Count 165, MPV 10.5 04/24/21 18:00: Sodium 141, Potassium 4.7, Chloride 103, Carbon Dioxide 27, Anion Gap 11.0, BUN 31 H, Creatinine 1.0, Estimated GFR (MDRD) 72 L, Glucose 101 H, Calcium 9.2, Total Bilirubin 1.0, AST 21, ALT 23, Alkaline Phosphatase 73, Total Protein 6.6 L, Albumin 4.4, Globulin 2.2, Albumin/Globulin Ratio 2.0, Lipase 33 04/24/21 18:00: PT 12.5, INR 1.1, APTT 28.3 04/24/21 17:42: WBC 8.1, RBC 4.04 L, Hgb 13.7 L, Hct 40.3 L, MCV 99.8 H, MCH 33.9 H, MCHC 34.0, RDW 13.3, Plt Count 166, MPV 10.5, Neut # (Auto) 6.3, Lymph # (Auto) 1.0 L, [place] # (Auto) 0.6, Eos # (Auto) 0.2, Baso # (Auto) 0.0, Absolute Nucleated RBC 0.00, Nucleated RBC % 0.0 Fish Bones: 04/25/21 05:39 04/25/21 05:39 Home Medications and Allergies Home Medications: Ambulatory Orders Rosuvastatin Calcium [Crestor] 10 mg PO QPM 04/24/21 Ascorbic Acid [Vitamin C] 1,000 mg PO DAILY 04/25/21 Aspirin Chewable [[place] Aspirin] 81 mg PO DAILY 04/25/21 Cetirizine [ZyrTEC] 10 mg PO DAILY 04/25/21 Multivitamin [Theragran] 1 each PO DAILY 04/25/21 Active Medications Acetaminophen (Acetaminophen 325 Mg Tablet) 650 mg PO Q4HR PRN PRN Reason: Pain 1 to 4 Last Admin: 04/25/21 10:18 Dose: 650 mg Documented by: Heparin Sodium (Porcine) (Heparin 5,000 Unit/Ml Vial) 5,000 unit SUBQ BID [facility] Last Admin: 04/25/21 07:28 Dose: Not Given Documented by: Lactated Ringer's (Lr) 1,000 mls @ 75 mls/hr IV .[id number] [facility] Last Admin: 04/25/21 08:35 Dose: 75 mls/hr Documented by: Morphine Sulfate (Morphine 2 Mg/Ml Carpuject) 2 mg IVP Q2HR PRN PRN Reason: Pain 8 to 10 Last Admin: 04/25/21 00:40 Dose: 2 mg Documented by: Ondansetron HCl (Ondansetron Odt 4 Mg Tablet) 4 mg TL Q6HR PRN PRN Reason: Nausea / Vomiting Oxycodone HCl (Oxycodone 5 Mg Tablet) 5 mg PO Q4HR PRN PRN Reason: Pain 5 to 7 Promethazine HCl (Promethazine 25 Mg/1 Ml Vial) 25 mg IM Q6HR PRN PRN Reason: Nausea / Vomiting Sodium Chloride (Sodium Chloride Flush 0.9% 10 Ml Syringe) 10 ml IVP PRN PRN PRN Reason: NEEDED PER PROVIDER ORDERS Sodium Chloride (Sodium Chloride Flush 0.9% 10 Ml Syringe) 10 ml IVP 010 0,0900,1700 [facility] Last Admin: 04/25/21 08:38 Dose: Not Given Documented by: Zolpidem Tartrate (Zolpidem 5 Mg Tablet) 5 mg PO QPM PRN PRN Reason: Insomnia Last Admin: 04/24/21 21:14 Dose: 5 mg Documented by: Lisinopril 20 mg PO DAILY 10/15/13 Tamsulosin [Flomax] 0.4 mg PO DAILY 10/15/13 Rosuvastatin Calcium [Crestor] 10 mg PO QPM 04/24/21 Ascorbic Acid [Vitamin C] 1,000 mg PO DAILY 04/25/21 Aspirin Chewable [[place] Aspirin] 81 mg PO DAILY 04/25/21 Cetirizine [ZyrTEC] 10 mg PO DAILY 04/25/21 Multivitamin [Theragran] 1 each PO DAILY 04/25/21 Allergies/Adverse Reactions: Allergies Allergy/AdvReac Type Severity Reaction Status Date / Time No Known Drug Allergies Allergy Verified 04/24/21 16:41 Anes History & Medical History - Anesthetic History Anesthesia Complications: reports: No previous complications - Medical History Cardiovascular: reports: Hypertension, [place], Other (small AAA per RN) Pulmonary: reports: None Gastrointestinal: reports: None Urinary: reports: Benign prostate hypertrophy Neuro: reports: CVA, Other Musculoskeletal: reports: Osteoarthritis Endocrine/Autoimmune: reports: None Blood Disorders: reports: None Skin: reports: None Smoking Status: Never smoker - Surgical History General: reports: Hiatal hernia repair Cardiothoracic: reports: Coronary stent Exam General: Alert, Oriented x3 Dental: Poor dentition Mouth Openin Fingerbreadth Neck Mobility: Normal Mallampati classification: II Thyromental Distance: greater than 6 cm Respiratory: Lungs clear Cardiovascular: Regular rate, Normal S1, Normal S2 Plan Anesthesia Type: Spinal Consent for Procedure(s) Verified and Reviewed: Yes Code Status: Attempt Resuscitation ASA classification: 3-Severe systemic disease Is this case an emergency?: No
[2021-04-25] MEDS ORDERED: LIDOCAINE 2%-EPI 1:100000 20 ML MDV ONE (12:41)
[2021-04-25] MEDS ORDERED: BUPIVACAINE 0.5% PF 10 ML VIAL ONE (12:42)
[2021-04-25] MEDS ORDERED: SODIUM CHLORIDE FLUSH 0.9% 10 ML SYRINGE IVP PRN (12:50)
[2021-04-25] MEDS ORDERED: ACETAMINOPHEN 1,000 MG/100 ML 100 ML IV PRN (12:50)
[2021-04-25] MEDS ORDERED: PROCHLORPERAZINE 10 MG/2 ML VIAL IVP PRN (12:50)
[2021-04-25] MEDS ORDERED: ONDANSETRON 4 MG/2 ML VIAL IVP PRN ×2 (12:50→13:28)
[2021-04-25] MEDS ORDERED: KETAMINE 500 MG/10 ML VIAL ONE (12:51)
[2021-04-25] MEDS ORDERED: SODIUM CHLORIDE 0.9% 10 ML VIAL IVP ONE (12:51)
[2021-04-25] MEDS ORDERED: ONDANSETRON 4 MG/2 ML VIAL ONE (12:52)
[2021-04-25] MEDS ORDERED: PROPOFOL 500 MG/50 ML 500 MG/50 ML VIAL ONE ×2 (12:52→14:46)
[2021-04-25] MEDS ORDERED: LIDOCAINE-MPF 2% 5 ML VIAL ONE ×2 (12:52→12:56)
[2021-04-25] MEDS ORDERED: SODIUM CHLORIDE 0.9% 1,000 ML IV SCH (13:00)
[2021-04-25] MEDS ORDERED: ePHEDrine 50 MG/ML VIAL IVP PRN (13:28)
[2021-04-25] MEDS ORDERED: MORPHINE 2 MG/ML CARPUJECT IVP PRN (13:28)
[2021-04-25] MEDS ORDERED: ATROPINE ABBOJECT 1 MG/10 ML SYRINGE IVP PRN (13:28)
[2021-04-25] MEDS ORDERED: fentaNYL 100 MCG/2 ML VIAL IVP PRN (13:28)
[2021-04-25] MEDS ORDERED: HYDROmorphone 0.5 MG/0.5 ML SYRINGE IVP PRN (13:28)
[2021-04-25] MEDS ORDERED: NALOXONE 0.4 MG/ML VIAL IVP PRN (13:28)
[2021-04-25] MEDS ORDERED: ePHEDrine 50 MG/ML VIAL IVP ONE (13:30)
[2021-04-25] MEDS ORDERED: LACTATED RINGERS 1,000 ML IV SCH (14:00)
[2021-04-25] MEDS ORDERED: ceFAZolin 2 GM in SODIUM CHLORIDE 0.9% 100ML 100 ML IV SCH (14:00)
[2021-04-25] MEDS ORDERED: ROPIVACAINE 0.5% PF 20 ML AMPULE ONE (14:17)
[2021-04-25] MEDS ORDERED: PHENYLEPHRINE 10 MG/ML VIAL ONE (14:17)
[2021-04-25] MEDS ORDERED: VANCOMYCIN 1 GM VIAL MC ONE (14:38)
[2021-04-25] MEDS ORDERED: VANCOMYCIN 1 GM VIAL ONE (14:43)
--- NOTE | 2021-04-25 15:15 | OPERATIVE REPORT ---
Operative Report - General Admit Date: 04/24/21 Procedure Date: 04/25/21 Planned Procedure: Left hip hemiarthroplasty Pre-Op Diagnosis: Mildly displaced femoral neck fracture left hip Procedure Performed: Left hip hemiarthroplasty using [employer]hew unipolar head, 49 mm, +0; #13 high offset cemented femoral component, Synergy Post Op Diagnosis: Same as preoperative diagnosis - Procedure Note Primary Surgeon: Gustavo Vogel MD Secondary Surgeon: Yamil LING Anesthesia Provider: Dinora Alejandro CRNA Anesthesia Technique: Regional block, Spinal Estimated Blood Loss (mL): 100 Indications: Patient sustained a mechanical fall yesterday landing on left hip with immediate pain and inability to bear weight on left leg. He had marked pain with movement of the left hip. His x-rays showed a mildly displaced femoral neck fracture left hip. He had preoperative medical evaluation and was felt to be acceptable for surgery. He does have comorbidities of cardiovascular and cerebrovascular disease, both relatively stable. Findings: There was minimal arthrosis to the femoral head, mildly displaced femoral neck fracture as x-ray suggested with some impaction. Complications: None - Other Other Information/Narrative: The patient was brought to the operating room, given a Spinal anesthetic. She was placed on the operating table initially supine, then turned to a lateral decubitus position with the left hip facing superiorly. The patient was secured in the lateral decubitus position using the pegboard and PEG holders to pelvis and torso. The left hip and lower extremity were prepped and draped in a sterile manner in the usual fashion. A timeout procedure was performed by the entire operating room team and all were in agreement. A longitudinal incision was made over the lateral aspect of the left hip, centered about the greater trochanter. The skin, subcutaneous tissue and fascia dagmar were split. A self-retaining retractor was inserted. The myotendinous junction of the anterior one third of the gluteus medius was released. The anterior hip capsule was exposed split longitudinally and then divided transv ersely in a T-shaped fashion. Part of the anterior hip capsule was exposed. The femoral head was removed using a corkscrew and bone hook, measured 49 mm in diameter with calipers. The acetabulum was cleared of some small capsular fracture fragments. The left leg was placed in an anterior pocket. The femoral canal was opened with a box osteotome, starting reamer and then broaching up to a 13 mm broach. The broaching was done in 1 mm increments. The broach was inserted with slight anteversion. Because of her thin cortex, a cemented technique was elected. A canal plug was inserted distally, approximately 19 to 20 cm distal to the osteotomy. The canal was cleaned with a brush and pulsatile lavage, dried with a suction pad and lap pad. A 13 Synergy component was then inserted after using a cement gun to insert the cement, pressurizing the cement. The proximal portion of the stem was pushed laterally to provide some valgus, set flush with femoral neck cortex. Trial reduction was performed with the 49 mm +0 unipolar head and was found to be stable and had good leg length tension. A permanent 49 mm unipolar head was then impacted on the femoral trunnion, reduced, taken through range of motion is found to have good motion and good stability as well as leg length tension. The wound was irrigated with dilute Betadine followed by saline irrigation. The anterior capsule and gluteus medius were both repaired with #1 strata fix suture, fascia dagmar closed with #1 strata fix suture, subcutaneous tissue closed with 2 O strata fix suture, subcuticular closure with 3 O strata fix suture. Finally, Dermabond was applied to the skin, silver impregnated dressing after the Dermabond had hardened. She received 2 g of Ancef and 1 g of trans-Yo acid, tolerated procedure well. Physician health care assistant was utilized, medically necessary, to provide the necessary exposure, protection of vital structures, facilitate with dislocation and reduction of the hip, wound closure and dressing.
[2021-04-25] MEDS ORDERED: LACTATED RINGERS 800 ML IV ONE (15:58)
--- NOTE | 2021-04-25 16:21 | ANESTHESIA POST OP EVALUATION ---
Anesthesia Post Eval - Post Anesthesia Eval Vitals: Last Vital Signs Temp 36.7 C 04/25/21 16:05 Pulse 55 L 04/25/21 16:05 Resp 22 04/25/21 16:05 BP 120/63 04/25/21 16:05 Pulse Ox 97 04/25/21 16:05 CV Function Including HR & BP: Stable Pain Control: Satisfactory Nausea & Vomiting: Negative Mental Status: Baseline Respiratory Status: Airway Patent Hydration Status: Satisfactory Anesthesia Complications: None
[2021-04-25] MEDS ORDERED: SODIUM CHLORIDE FLUSH 0.9% 10 ML SYRINGE IVP SCH (17:00)
--- NOTE | 2021-04-25 17:34 | XRAY Report ---
PROCEDURE: Pelvis 1 View INDICATIONS: HEMIARTHROPLASTY POST OP LEFT HIP TECHNIQUE: Single oblique AP view of the pelvis acquired. COMPARISON: Left hip radiographs 04/24/2021 FINDINGS: Bones: Postoperative changes are seen from left hip hemiarthroplasty with expected alignment. No susp icious bony lesions. The remaining visualized osseous structures appear intact. Soft tissues: Expected postoperative findings are seen in the soft tissues overlying the left hip. Tsai rgical clips again noted projecting over the scrotum. IMPRESSION: Status post left hip hemiarthroplasty with expected postoperative findings. Reviewed by: Joe Harrington MD on 04/25/2021 5:33 PM PDT Approved by: Joe Harrington MD on 04/25/2021 5:33 PM PDT Station ID: [id number]
--- NOTE | 2021-04-25 18:04 | PROVIDER PROGRESS NOTE ---
Subjective - Prog Note Date Prog Note Date: 04/25/21 Prog Note Time: 18:01 - Subjective Pt reports feeling: Improved (Patient is postop day 0 from left hip h emiarthroplasty and currently denies pain and is feeling well) Current Medications - Current Medications Current Medications: Current Medications Generic Name Dose Route Start Last Admin Trade Name Freq PRN Reason Stop Dose Admin Heparin Sodium (Porcine) 5,000 unit 04/24/21 21:00 04/25/21 07:28 Heparin 5,000 Unit/Ml Vial SUBQ Not Given BID KYLE Lactated Ringer's 1,000 mls @ 75 mls/hr 04/24/21 18:00 04/25/21 08:35 Lr IV 75 mls/hr .[id number] KYLE Administration Morphine Sulfate 2 mg 04/24/21 17:45 04/25/21 00:40 Morphine 2 Mg/Ml Carpuject IVP 2 mg Q2HR PRN Administration Pain 8 to 10 Sodium Chloride 10 ml 04/25/21 01:00 04/25/21 17:35 Sodium Chloride Flush 0.9% 10 Ml Syringe IVP Not Given 0100,0900,1700 KYLE Zolpidem Tartrate 5 mg 04/24/21 20:24 04/24/21 21:14 Zolpidem 5 Mg Tablet PO 5 mg QPM PRN Administration Insomnia Objective - Vital Signs/Intake & Output Reviewed Vital Signs: Yes Vital Signs: Vital Signs x48h Temp Pulse Pulse Resp BP BP Pulse Ox 04/25/21 16:05 36.7 C 55 L 22 120/63 97 04/25/21 16:00 36.7 C 60 21 114/62 97 04/25/21 15:55 36.7 C 60 21 113/65 96 04/25/21 15:50 36.7 C 58 L 16 114/64 97 04/25/21 15:48 36.7 C 57 L 16 109/58 L 96 04/25/21 12:12 36.5 C 55 L 20 116/55 L 96 Intake & Output: Intake & Output 04/22/21 04/23/21 04/24/21 04/25/21 23:59 23:59 23:59 23:59 Intake Total 150 968.75 Output Total 125 950 Balance 25 18.75 - Objective General Appearance: positive: No acute distress, Alert, Mild distress Eyes Bilateral: positive: Normal inspection Neck: positive: Nml inspection, No JVD Respiratory: positive: Chest non-tender, No respiratory distress Cardiovascular: positive: Regular rate & rhythm, No murmur Abdomen: positive: Non-tender, No organomegaly, Nml bowel sounds, No distention Skin: positive: Color nml Neurologic/Psychiatric: positive: Oriented x3, CN's nml (2-12) - Lab Results Fish Bones: 04/25/21 05:39 04/25/21 05:39 Other Labs: Lab Results x24hrs 04/25/21 04/25/21 04/24/21 Range/Units 05:39 05:39 18:00 WBC 8.9 (4.8-10.8) x10^3/uL RBC 3.54 L (4.70-6.10) 10^6/uL Hgb 11.8 L (14.0-18.0) g/dL Hct 35.1 L (42.0-52.0) % MCV 99.2 H (80.0-94.0) fL MCH 33.3 H (27.0-31.0) pg MCHC 33.6 (32.0-36.0) g/dL RDW 13.3 (12.0-15.0) % Plt Count 165 (130-450) 10^3/uL MPV 10.5 (7.4-11.4) fL Neut # (Auto) (1.5-6.6) 10^3/uL Lymph # (Auto) (1.5-3.5) 10^3/uL Lea # (Auto) (0.0-1.0) 10^3/uL Eos # (Auto) (0.0-0.7) 10^3/uL Baso # (Auto) (0.0-0.1) 10^3/uL Absolute Nucleated RBC x10^3/uL Nucleated RBC % /100WBC PT (9.9-12.6) secs INR (0.8-1.2) APTT (24.9-33.3) secs Sodium 135 141 (135-145) mmol/L Potassium 4.3 4.7 (3.5-5.0) mmol/L Chloride 99 L 103 (101-111) mmol/L Carbon Dioxide 28 27 (21-32) mmol/L Anion Gap 8.0 11.0 (6-13) BUN 26 H 31 H (6-20) mg/dL Creatinine 0.9 1.0 (0.6-1.2) mg/dL Estimated GFR (MDRD) 81 L 72 L (>89) Glucose 115 H 101 H (70-100) mg/dL Calcium 8.3 L 9.2 (8.5-10.3) mg/dL Total Bilirubin 1.0 (0.2-1.0) mg/dL AST 21 (10-42) IU/L ALT 23 (10-60) IU/L Alkaline Phosphatase 73 (42-121) IU/L Total Protein 6.6 L (6.7-8.2) g/dL Albumin 4.4 (3.2-5.5) g/dL Globulin 2.2 (2.1-4.2) g/dL Albumin/Globulin Ratio 2.0 (1.0-2.2) Lipase 33 (22-51) U/L Nasal Adenovirus (PCR) Nasal B. parapertussis DNA (PCR) Nasal Coronavir 229E PCR Nasal Coronavir HKU1 PCR Nasal Coronavir NL63 PCR Nasal Coronavir OC43 PCR Nasal Enterovir/Rhinovir PCR Nasal Influenza B PCR Nasal Influenza A PCR Nasal Parainfluen 1 PCR Nasal Parainfluen 2 PCR Nasal Parainfluen 3 PCR Nasal Parainfluen 4 PCR Nasal RSV (PCR) Nasal B.pertussis DNA PCR Nasal C.pneumoniae (PCR) Mehrdad Human Metapneumo PCR Nasal M.pneumoniae (PCR) Nasal SARS-CoV-2 (PCR) 04/24/21 04/24/21 04/24/21 Range/Units 18:00 17:57 17:42 WBC 8.1 (4.8-10.8) x10^3/uL RBC 4.04 L (4.70-6.10) 10^6/uL Hgb 13.7 L (14.0-18.0) g/dL Hct 40.3 L (42.0-52.0) % MCV 99.8 H (80.0-94.0) fL MCH 33.9 H (27.0-31.0) pg MCHC 34.0 (32.0-36.0) g/dL RDW 13.3 (12.0-15.0) % Plt Count 166 (130-450) 10^3/uL MPV 10.5 (7.4-11.4) fL Neut # (Auto) 6.3 (1.5-6.6) 10^3/uL Lymph # (Auto) 1.0 L (1.5-3.5) 10^3/uL Lea # (Auto) 0.6 (0.0-1.0) 10^3/uL Eos # (Auto) 0.2 (0.0-0.7) 10^3/uL Baso # (Auto) 0.0 (0.0-0.1) 10^3/uL Absolute Nucleated RBC 0.00 x10^3/uL Nucleated RBC % 0.0 /100WBC PT 12.5 (9.9-12.6) secs INR 1.1 (0.8-1.2) APTT 28.3 (24.9-33.3) secs Sodium (135-145) mmol/L Potassium (3.5-5.0) mmol/L Chloride (101-111) mmol/L Carbon Dioxide (21-32) mmol/L Anion Gap (6-13) BUN (6-20) mg/dL Creatinine (0.6-1.2) mg/dL Estimated GFR (MDRD) (>89) Glucose (70-100) mg/dL Calcium (8.5-10.3) mg/dL Total Bilirubin (0.2-1.0) mg/dL AST (10-42) IU/L ALT (10-60) IU/L Alkaline Phosphatase (42-121) IU/L Total Protein (6.7-8.2) g/dL Albumin (3.2-5.5) g/dL Globulin (2.1-4.2) g/dL Albumin/Globulin Ratio (1.0-2.2) Lipase (22-51) U/L Nasal Adenovirus (PCR) NOT DETECTED Nasal B. parapertussis DNA (PCR) NOT DETECTED Nasal Coronavir 229E PCR NOT DETECTED Nasal Coronavir HKU1 PCR NOT DETECTED Nasal Coronavir NL63 PCR NOT DETECTED Nasal Coronavir OC43 PCR NOT DETECTED Nasal Enterovir/Rhinovir PCR NOT DETECTED Nasal Influenza B PCR NOT DETECTED Nasal Influenza A PCR NOT DETECTED Nasal Parainfluen 1 PCR NOT DETECTED Nasal Parainfluen 2 PCR NOT DETECTED Nasal Parainfluen 3 PCR NOT DETECTED Nasal Parainfluen 4 PCR NOT DETECTED Nasal RSV (PCR) NOT DETECTED Nasal B.pertussis DNA PCR NOT DETECTED Nasal C.pneumoniae (PCR) NOT DETECTED Mehrdad Human Metapneumo PCR NOT DETECTED Nasal M.pneumoniae (PCR) NOT DETECTED Nasal SARS-CoV-2 (PCR) NOT DETECTED - Diagnostic Imaging Diagnostic Imaging Results: positive: Final report reviewed ABX Reporting Has patient been on IV antibiotics over the past 48 hours?: No Assessment/Plan - Problem List (1) Fracture of left hip Impression: Postop day 0 left hip hemiarthroplasty. Doing well. Start Lovenox 40 mg subcu daily Continue pain control Follow-up PT/OT eval, work on placement Qualifiers: Encounter type: initial encounter Fracture type: closed Qualified Code(s): S72.002A - Fracture of unspecified part of neck of left femur, initial encounter for closed fracture (2) CAD (coronary artery disease) Impression: Stable Continue home medications wanted us to be aware that the patient was recently diagnosed with a small AAA We will monitor (3) HLD (hyperlipidemia) Impression: Continue statin (4) BPH (benign prostatic hyperplasia) Impression: Stable though patient has mild hematuria in the [place] We will monitor this and if does not clear will investigate further otherwise take out [place] tomorrow (5) Left foot drop Impression: Assess with physical therapy May be a candidate for an AFO Further management deferred to outpatient
[2021-04-25] MEDS: ACETAMINOPHEN 325 MG TABLET PO PRN (18:44)
[2021-04-25] MEDS: ceFAZolin 2 GM in SODIUM CHLORIDE 0.9% 100ML 100 ML IV SCH (18:47)
[2021-04-26] MEDS: ACETAMINOPHEN 325 MG TABLET PO PRN ×5 (00:38→20:47)
[2021-04-26] MEDS: SODIUM CHLORIDE FLUSH 0.9% 10 ML SYRINGE IVP SCH ×3 (00:40→16:22)
[2021-04-26] MEDS: LACTATED RINGERS 1,000 ML IV SCH ×2 (01:53→15:18)
[2021-04-26] MEDS: oxyCODONE 5 MG TABLET PO PRN ×5 (01:53→20:42)
[2021-04-26] MEDS: ceFAZolin 2 GM in SODIUM CHLORIDE 0.9% 100ML 100 ML IV SCH (02:40)
[2021-04-26] MEDS: MORPHINE 2 MG/ML CARPUJECT IVP PRN (05:33)
[2021-04-26 06:14] LABS: HCT - HEMATOCRIT 33.7 % (42.0-52.0); HGB - HEMOGLOBIN 11.4 g/dL (14.0-18.0); MEAN CORPUSCULAR HEMOGLOBIN 33.4 pg (27.0-31.0); MEAN CORPUSCULAR HGB CONC 33.8 g/dL (32.0-36.0); MEAN CORPUSCULAR VOLUME 98.8 fL (80.0-94.0); MEAN PLATELET VOLUME 11.2 fL (7.4-11.4); RED BLOOD COUNT 3.41 10^6/uL (4.70-6.10); RED CELL DISTRIBUTION WIDTH 13.5 % (12.0-15.0); WHITE BLOOD COUNT 9.8 x10^3/uL (4.8-10.8)
[2021-04-26 06:23] LABS: CALCIUM 8.1 mg/dL (8.5-10.3); POTASSIUM 4.1 mmol/L (3.5-5.0)
[2021-04-26] MEDS: ASPIRIN EC 81 MG TABLET PO SCH ×2 (08:04→20:48)
[2021-04-26] MEDS: ENOXAPARIN 40 MG/0.4 ML SYRINGE SUBQ SCH (08:10)
[2021-04-26] MEDS: CALCIUM CARBONATE CHEW 500 MG TABLET PO SCH ×2 (10:31→20:48)
--- NOTE | 2021-04-26 11:37 | PROVIDER PROGRESS NOTE ---
Subjective - General Admit Date: 04/24/21 Procedure Date: 04/25/21 Post Op Days: 1 Procedure Performed: Left hip hemiarthroplasty - Review of Systems Wound/Incisions: positive: Dressing dry and intact General: positive: No symptoms Gastrointestinal: negative: Nausea, Vomiting Musculoskeletal: positive: Joint pain, Joint swelling Skin: positive: No symptoms - Other Other Information/Narrative: Patient is an 81-year-old male who is postop hip hemiarthroplasty for femoral neck fracture performed by Dr Gustavo Vogel at [facility] on 04/25/2021. Patient's medical history includes coronary artery and cerebrovascular disease has baseline neurological and gait deficits. Patient's pain is well controlled shows no signs or symptoms of infection is receiving PT/OT. He is weightbearing as tolerated in front wheeled walker. Patient was admitted under the hospitalist service and being medically comanaged by the hospitalist. Objective - Patient Data Vital Signs: Vital Signs x48h Temp Pulse Resp BP BP Pulse Ox 04/26/21 11:26 81 131/76 H 96 04/26/21 07:33 37.6 C 72 19 159/71 H 91 L 04/26/21 05:00 36.6 C 73 20 138/69 H 92 Weight: Weight 04/24/21 04/25/21 04/26/21 23:59 23:59 23:59 Weight (kg) 86 kg 86 kg Intake & Output: Intake and Output Totals x24h 04/24/21 04/25/21 04/26/21 23:59 23:59 23:59 Intake Total 150 2568.75 960 Output Total 125 1150 1500 Balance 25 1418.75 -540 - Lab Results Lab Results: 04/26/21 05:35 04/26/21 05:35 Other Lab Results: Lab Results x24hrs 04/26/21 04/26/21 Range/Units 05:35 05:35 WBC 9.8 (4.8-10.8) x10^3/uL RBC 3.41 L (4.70-6.10) 10^6/uL Hgb 11.4 L (14.0-18.0) g/dL Hct 33.7 L (42.0-52.0) % MCV 98.8 H (80.0-94.0) fL MCH 33.4 H (27.0-31.0) pg MCHC 33.8 (32.0-36.0) g/dL RDW 13.5 (12.0-15.0) % Plt Count 150 (130-450) 10^3/uL MPV 11.2 (7.4-11.4) fL Sodium 134 L (135-145) mmol/L Potassium 4.1 (3.5-5.0) mmol/L Chloride 99 L (101-111) mmol/L Carbon Dioxide 27 (21-32) mmol/L Anion Gap 8.0 (6-13) BUN 19 (6-20) mg/dL Creatinine 1.0 (0.6-1.2) mg/dL Estimated GFR (MDRD) 72 L (>89) Glucose 129 H (70-100) mg/dL Calcium 8.1 L (8.5-10.3) mg/dL - Imaging Results Radiology Imaging: positive: EMP read indepedently (I have independently visualized the radiographs taken postoperatively on 04/25/2021 that show good anatomical alignment postop left hip hemiarthroplasty with no apparent hardware loosening) - Current Medications Current Medications: Current Medications Generic Name Dose Route Start Last Admin Trade Name Freq PRN Reason Stop Dose Admin Acetaminophen 650 - 975 mg 04/25/21 12:50 04/26/21 08:05 Acetaminophen 325 Mg Tablet PO 650 mg Q4HR PRN Administration PAIN Aspirin 81 mg 04/26/21 09:00 04/26/21 08:04 Aspirin Ec 81 Mg Tablet PO 81 mg BID KYLE Administration Calcium Carbonate/Glycine 500 mg 04/26/21 09:00 04/26/21 10:31 Calcium Carbonate Chew 500 Mg Tablet PO 500 mg BID KYLE Administration Enoxaparin Sodium 40 mg 04/26/21 09:00 04/26/21 08:10 Enoxaparin 40 Mg/0.4 Ml Syringe SUBQ 40 mg DAILY KYLE Administration Lactated Ringer's 1,000 mls @ 75 mls/hr 04/24/21 18:00 04/26/21 01:53 Lr IV 75 mls/hr .[id number] KYLE Administration Morphine Sulfate 2 mg 04/24/21 17:45 04/26/21 05:33 Morphine 2 Mg/Ml Carpuject IVP 2 mg Q2HR PRN Administration Pain 8 to 10 Oxycodone HCl 5 mg 04/24/21 17:45 04/26/21 08:03 Oxycodone 5 Mg Tablet PO 5 mg Q4HR PRN Administration Pain 5 to 7 Sodium Chloride 10 ml 04/24/21 17:45 04/25/21 19:47 Sodium Chloride Flush 0.9% 10 Ml Syringe IVP 10 ml PRN PRN Administration NEEDED PER PROVIDER ORDERS Sodium Chloride 10 ml 04/25/21 01:00 04/26/21 08:14 Sodium Chloride Flush 0.9% 10 Ml Syringe IVP Not Given 0100,0900,1700 [facility] Zolpidem Tartrate 5 mg 04/24/21 20:24 04/24/21 21:14 Zolpidem 5 Mg Tablet PO 5 mg QPM PRN Administration Insomnia - Physical Exam Wound/Incisions: positive: Dressing dry and intact General Appearance: positive: No acute distress Respiratory: positive: No respiratory distress Skin: positive: Color nml, No rash, Warm, Dry Neurologic/Psychiatric: positive: Oriented x3, Motor nml Impression/Plan - Problem List Problem List: Patient is an 81-year-old male who is postop day 1 left hip hemiarthroplasty. Patient's pain is well controlled he is weightbearing as tolerated in front wheeled walker order has been placed for the walker for the patient to take home. Shows no signs or symptoms of infection continue to get PT OT while he is in hospital. Patient is to take aspirin 81 mg twice daily for DVT prophylaxis. Patient has absorbable sutures there are no sutures to be removed. [facility] Patient called the clinic between 8 and 5 Saturday through Saturday at [phone]. Patient is cleared from a orthopedic surgical standpoint. Patient admitted by hospitalist and has been medically comanaged by the hospitalist.
--- NOTE | 2021-04-26 13:55 | PROVIDER PROGRESS NOTE ---
Assessment/Plan - Problem List (1) Fracture of left hip Qualifiers: Encounter type: initial encounter Fracture type: closed Qualified Code(s): S72.002A - Fracture of unspecified part of neck of left femur, initial encounter for closed fracture Assessment/Plan: POD Day #1 Doing well PT went well Pending evals likely SNF vs Home w/ HH Cont pain control Cont Lovenox for DVT Px while inpt F/u w/ ortho (2) CAD (coronary artery disease) Assessment/Plan: Stable Continue home medications wanted us to be aware that the patient was recently diagnosed with a small AAA We will monitor (3) HLD (hyperlipidemia) Assessment/Plan: Continue statin (4) BPH (benign prostatic hyperplasia) Assessment/Plan: Stable Cont Flomax Remove jaramillo (5) Left foot drop Assessment/Plan: Assess with physical therapy May be a candidate for an AFO Further management deferred to outpatient - Current Meds Current Meds: Current Medications Generic Name Dose Route Start Last Admin Trade Name Freq PRN Reason Stop Dose Admin Acetaminophen 650 - 975 mg 04/25/21 12:50 04/26/21 12:15 Acetaminophen 325 Mg Tablet PO 650 mg Q4HR PRN Administration PAIN Aspirin 81 mg 04/26/21 09:00 04/26/21 08:04 Aspirin Ec 81 Mg Tablet PO 81 mg BID KYLE Administration Calcium Carbonate/Glycine 500 mg 04/26/21 09:00 04/26/21 10:31 Calcium Carbonate Chew 500 Mg Tablet PO 500 mg BID KYLE Administration Enoxaparin Sodium 40 mg 04/26/21 09:00 04/26/21 08:10 Enoxaparin 40 Mg/0.4 Ml Syringe SUBQ 40 mg DAILY KYLE Administration Lactated Ringer's 1,000 mls @ 75 mls/hr 04/24/21 18:00 04/26/21 01:53 Lr IV 75 mls/hr .[id number] KYLE Administration Morphine Sulfate 2 mg 04/24/21 17:45 04/26/21 05:33 Morphine 2 Mg/Ml Carpuject IVP 2 mg Q2HR PRN Administration Pain 8 to 10 Oxycodone HCl 5 mg 04/24/21 17:45 04/26/21 12:15 Oxycodone 5 Mg Tablet PO 5 mg Q4HR PRN Administration Pain 5 to 7 Sodium Chloride 10 ml 04/24/21 17:45 04/25/21 19:47 Sodium Chloride Flush 0.9% 10 Ml Syringe IVP 10 ml PRN PRN Administration NEEDED PER PROVIDER ORDERS Sodium Chloride 10 ml 04/25/21 01:00 04/26/21 08:14 Sodium Chloride Flush 0.9% 10 Ml Syringe IVP Not Given 0100,0900,1700 KYLE Zolpidem Tartrate 5 mg 04/24/21 20:24 04/24/21 21:14 Zolpidem 5 Mg Tablet PO 5 mg QPM PRN Administration Insomnia - Lab Result Fish Bone Diagrams: 04/26/21 05:35 04/26/21 05:35 - Additional Planning My Orders: My Active Orders 04/25/21 Dinner DIET [Cardiac Diet] [DIET] 04/26/21 09:00 Calcium Carbonate [Tums] 500 mg PO BID Enoxaparin [Lovenox] 40 mg SUBQ DAILY 04/27/21 05:00 BMP - BASIC METABOLIC PANEL [CHEM] DAILYLAB CBC W/O DIFF (HEMOGRAM) [HEME] DAILYLAB Subjective - Subjective Patient Reports: Feeling Better Objective Vital Signs: Vital Signs - 24 hr 04/25/21 04/25/21 04/25/21 15:20 15:48 15:50 Temperature 36.5 C 36.7 C 36.7 C Heart Rate 57 L 58 L Heart Rate [ 51 L Brachial] Heart Rate [ Sitting] Heart Rate [ Standing] Heart Rate [ Supine] Respiratory 18 16 16 Rate Blood Pressure 109/58 L 114/64 Blood Pressure [Left Brachial artery] Blood Pressure 121/64 [Right Brachial artery] Blood Pressure [Sitting] Blood Pressure [Standing] Blood Pressure [Supine] O2 Saturation 99 96 97 04/25/21 04/25/21 04/25/21 15:55 16:00 16:05 Temperature 36.7 C 36.7 C 36.7 C Heart Rate 60 60 55 L Heart Rate [ Brachial] Heart Rate [ Sitting] Heart Rate [ Standing] Heart Rate [ Supine] Respiratory 21 21 22 Rate Blood Pressure 113/65 114/62 120/63 Blood Pressure [Left Brachial artery] Blood Pressure [Right Brachial artery] Blood Pressure [Sitting] Blood Pressure [Standing] Blood Pressure [Supine] O2 Saturation 96 97 97 04/25/21 04/26/21 04/26/21 21:00 00:00 05:00 Temperature 36.5 C 36.5 C 36.6 C Heart Rate Heart Rate [ 77 69 73 Brachial] Heart Rate [ Sitting] Heart Rate [ Standing] Heart Rate [ Supine] Respiratory 18 20 20 Rate Blood Pressure Blood Pressure [Left Brachial artery] Blood Pressure 147/66 H 129/75 138/69 H [Right Brachial artery] Blood Pressure [Sitting] Blood Pressure [Standing] Blood Pressure [Supine] O2 Saturation 93 95 92 04/26/21 04/26/21 04/26/21 07:33 10:55 11:26 Temperature 37.6 C Heart Rate Heart Rate [ 72 81 Brachial] Heart Rate [ 72 Sitting] Heart Rate [ 81 Standing] Heart Rate [ 69 Supine] Respiratory 19 Rate Blood Pressure Blood Pressure 159/71 H 131/76 H [Left Brachial artery] Blood Pressure [Right Brachial artery] Blood Pressure 134/72 H [Sitting] Blood Pressure 131/76 H [Standing] Blood Pressure 143/70 H [Supine] O2 Saturation 91 L 96 Oxygen O2 Source Room air I&O (Last 24 Hrs): Intake and Output Totals x24h 04/24/21 04/25/21 04/26/21 23:59 23:59 23:59 Intake Total 150 2568.75 1200 Output Total 125 1150 1925 Balance 25 1418.75 -725 General: Alert, Oriented x3 HEENT: Atraumatic, PERRLA Neuro: Alert, Oriented Times 3 Cardiovascular: Normal S1, Normal S2, No murmurs Respiratory: Chest non-tender, No respiratory distress Abdomen: Normal bowel sounds - Results Results: Laboratory Results WBC 9.8 x10^3/uL (4.8-10.8) 04/26/21 05:35 RBC 3.41 10^6/uL (4.70-6.10) L 04/26/21 05:35 Hgb 11.4 g/dL (14.0-18.0) L 04/26/21 05:35 Hct 33.7 % (42.0-52.0) L 04/26/21 05:35 MCV 98.8 fL (80.0-94.0) H 04/26/21 05:35 MCH 33.4 pg (27.0-31.0) H 04/26/21 05:35 MCHC 33.8 g/dL (32.0-36.0) 04/26/21 05:35 RDW 13.5 % (12.0-15.0) 04/26/21 05:35 Plt Count 150 10^3/uL (130-450) 04/26/21 05:35 MPV 11.2 fL (7.4-11.4) 04/26/21 05:35 Neut # (Auto) 6.3 10^3/uL (1.5-6.6) 04/24/21 17:42 Lymph # (Auto) 1.0 10^3/uL (1.5-3.5) L 04/24/21 17:42 [place] # (Auto) 0.6 10^3/uL (0.0-1.0) 04/24/21 17:42 Eos # (Auto) 0.2 10^3/uL (0.0-0.7) 04/24/21 17:42 Baso # (Auto) 0.0 10^3/uL (0.0-0.1) 04/24/21 17:42 Absolute Nucleated RBC 0.00 x10^3/uL 04/24/21 17:42 Nucleated RBC % 0.0 /100WBC 04/24/21 17:42 PT 12.5 secs (9.9-12.6) 04/24/21 18:00 INR 1.1 (0.8-1.2) 04/24/21 18:00 APTT 28.3 secs (24.9-33.3) 04/24/21 18:00 Sodium 134 mmol/L (135-145) L 04/26/21 05:35 Potassium 4.1 mmol/L (3.5-5.0) 04/26/21 05:35 Chloride 99 mmol/L (101-111) L 04/26/21 05:35 Carbon Dioxide 27 mmol/L (21-32) 04/26/21 05:35 Anion Gap 8.0 (6-13) 04/26/21 05:35 BUN 19 mg/dL (6-20) 04/26/21 05:35 Creatinine 1.0 mg/dL (0.6-1.2) 04/26/21 05:35 Estimated GFR (MDRD) 72 (>89) L 04/26/21 05:35 Glucose 129 mg/dL (70-100) H 04/26/21 05:35 Calcium 8.1 mg/dL (8.5-10.3) L 04/26/21 05:35 Total Bilirubin 1.0 mg/dL (0.2-1.0) 04/24/21 18:00 AST 21 IU/L (10-42) 04/24/21 18:00 ALT 23 IU/L (10-60) 04/24/21 18:00 Alkaline Phosphatase 73 IU/L (42-121) 04/24/21 18:00 Total Protein 6.6 g/dL (6.7-8.2) L 04/24/21 18:00 Albumin 4.4 g/dL (3.2-5.5) 04/24/21 18:00 Globulin 2.2 g/dL (2.1-4.2) 04/24/21 18:00 Albumin/Globulin Ratio 2.0 (1.0-2.2) 04/24/21 18:00 Lipase 33 U/L (22-51) 04/24/21 18:00 Nasal Adenovirus (PCR) NOT DETECTED 04/24/21 17:57 Nasal B. parapertussis DNA (PCR) NOT DETECTED 04/24/21 17:57 Nasal Coronavir 229E PCR NOT DETECTED 04/24/21 17:57 Nasal Coronavir HKU1 PCR NOT DETECTED 04/24/21 17:57 Nasal Coronavir NL63 PCR NOT DETECTED 04/24/21 17:57 Nasal Coronavir OC43 PCR NOT DETECTED 04/24/21 17:57 Nasal Enterovir/Rhinovir PCR NOT DETECTED 04/24/21 17:57 Nasal Influenza B PCR NOT DETECTED 04/24/21 17:57 Nasal Influenza A PCR NOT DETECTED 04/24/21 17:57 Nasal Parainfluen 1 PCR NOT DETECTED 04/24/21 17:57 Nasal Parainfluen 2 PCR NOT DETECTED 04/24/21 17:57 Nasal Parainfluen 3 PCR NOT DETECTED 04/24/21 17:57 Nasal Parainfluen 4 PCR NOT DETECTED 04/24/21 17:57 Nasal RSV (PCR) NOT DETECTED 04/24/21 17:57 Nasal B.pertussis DNA PCR NOT DETECTED 04/24/21 17:57 Nasal C.pneumoniae (PCR) NOT DETECTED 04/24/21 17:57 Mehrdad Human Metapneumo PCR NOT DETECTED 04/24/21 17:57 Nasal M.pneumoniae (PCR) NOT DETECTED 04/24/21 17:57 Nasal SARS-CoV-2 (PCR) NOT DETECTED 04/24/21 17:57 - Procedures Procedures: Procedures CATARAC PHACOEMULS/ASPIR (11/03/14) INSERT LENS AT CATAR EXT (11/03/14) ABX Reporting Has patient been on IV antibiotics over the past 48 hours?: No Current Medications - Current Medications Current Medications: Current Medications Generic Name Dose Route Start Last Admin Trade Name Freq PRN Reason Stop Dose Admin Acetaminophen 650 - 975 mg 04/25/21 12:50 04/26/21 12:15 Acetaminophen 325 Mg Tablet PO 650 mg Q4HR PRN Administration PAIN Aspirin 81 mg 04/26/21 09:00 04/26/21 08:04 Aspirin Ec 81 Mg Tablet PO 81 mg BID KYLE Administration Calcium Carbonate/Glycine 500 mg 04/26/21 09:00 04/26/21 10:31 Calcium Carbonate Chew 500 Mg Tablet PO 500 mg BID KYLE Administration Enoxaparin Sodium 40 mg 04/26/21 09:00 04/26/21 08:10 Enoxaparin 40 Mg/0.4 Ml Syringe SUBQ 40 mg DAILY KYLE Administration Lactated Ringer's 1,000 mls @ 75 mls/hr 04/24/21 18:00 04/26/21 01:53 Lr IV 75 mls/hr .[id number] KYLE Administration Morphine Sulfate 2 mg 04/24/21 17:45 04/26/21 05:33 Morphine 2 Mg/Ml Carpuject IVP 2 mg Q2HR PRN Administration Pain 8 to 10 Oxycodone HCl 5 mg 04/24/21 17:45 04/26/21 12:15 Oxycodone 5 Mg Tablet PO 5 mg Q4HR PRN Administration Pain 5 to 7 Sodium Chloride 10 ml 04/24/21 17:45 04/25/21 19:47 Sodium Chloride Flush 0.9% 10 Ml Syringe IVP 10 ml PRN PRN Administration NEEDED PER PROVIDER ORDERS Sodium Chloride 10 ml 04/25/21 01:00 04/26/21 08:14 Sodium Chloride Flush 0.9% 10 Ml Syringe IVP Not Given 0100,0900,1700 KYLE Zolpidem Tartrate 5 mg 04/24/21 20:24 04/24/21 21:14 Zolpidem 5 Mg Tablet PO 5 mg QPM PRN Administration Insomnia
[2021-04-26] MEDS: polyethylene glycoL 3350 17 GM PACKET PO SCH (16:52)
[2021-04-27] MEDS: SODIUM CHLORIDE FLUSH 0.9% 10 ML SYRINGE IVP SCH ×3 (00:24→16:53)
[2021-04-27] MEDS: ACETAMINOPHEN 325 MG TABLET PO PRN ×4 (00:57→20:43)
[2021-04-27] MEDS: oxyCODONE 5 MG TABLET PO PRN ×4 (00:58→20:42)
[2021-04-27 04:49] LABS: HCT - HEMATOCRIT 31.1 % (42.0-52.0); MEAN CORPUSCULAR HEMOGLOBIN 34.6 pg (27.0-31.0); MEAN CORPUSCULAR HGB CONC 35.4 g/dL (32.0-36.0); MEAN CORPUSCULAR VOLUME 97.8 fL (80.0-94.0); MEAN PLATELET VOLUME 10.8 fL (7.4-11.4); RED BLOOD COUNT 3.18 10^6/uL (4.70-6.10); RED CELL DISTRIBUTION WIDTH 13.3 % (12.0-15.0); WHITE BLOOD COUNT 10.6 x10^3/uL (4.8-10.8)
[2021-04-27] MEDS: LACTATED RINGERS 1,000 ML IV SCH (04:49)
[2021-04-27 04:59] LABS: CALCIUM 8.3 mg/dL (8.5-10.3); CREATININE 0.9 mg/dL (0.6-1.2); POTASSIUM 4.2 mmol/L (3.5-5.0)
[2021-04-27] MEDS: polyethylene glycoL 3350 17 GM PACKET PO SCH (09:17)
[2021-04-27] MEDS: CALCIUM CARBONATE CHEW 500 MG TABLET PO SCH ×2 (09:17→20:40)
[2021-04-27] MEDS: ENOXAPARIN 40 MG/0.4 ML SYRINGE SUBQ SCH (09:17)
--- NOTE | 2021-04-27 15:15 | PROVIDER PROGRESS NOTE ---
Assessment/Plan - Problem List (1) Fracture of left hip Qualifiers: Encounter type: initial encounter Fracture type: closed Qualified Code(s): S72.002A - Fracture of unspecified part of neck of left femur, initial encounter for closed fracture Assessment/Plan: POD Day #2 Doing well PT went well Recc SNF Pt's doesn't want to go to [facility], requesting somewhere in [place]. Will defer to case management, appreciate help Cont pain control Cont Lovenox for DVT Px while inpt F/u w/ ortho (2) CAD (coronary artery disease) Assessment/Plan: Stable Continue home medications wanted us to be aware that the patient was recently diagnosed with a small AAA We will monitor (3) HLD (hyperlipidemia) Assessment/Plan: Continue statin (5) Left foot drop Assessment/Plan: Stable Cont Flomax Remove jaramillo - Current Meds Current Meds: Current Medications Generic Name Dose Route Start Last Admin Trade Name Freq PRN Reason Stop Dose Admin Acetaminophen 650 - 975 mg 04/25/21 12:50 04/27/21 09:18 Acetaminophen 325 Mg Tablet PO 650 mg Q4HR PRN Administration PAIN Aspirin 81 mg 04/26/21 09:00 04/26/21 20:48 Aspirin Ec 81 Mg Tablet PO 81 mg BID KYLE Administration Calcium Carbonate/Glycine 500 mg 04/26/21 09:00 04/27/21 09:17 Calcium Carbonate Chew 500 Mg Tablet PO 500 mg BID KYLE Administration Enoxaparin Sodium 40 mg 04/26/21 09:00 04/27/21 09:17 Enoxaparin 40 Mg/0.4 Ml Syringe SUBQ 40 mg DAILY KYLE Administration Morphine Sulfate 2 mg 04/24/21 17:45 04/26/21 05:33 Morphine 2 Mg/Ml Carpuject IVP 2 mg Q2HR PRN Administration Pain 8 to 10 Ondansetron HCl 4 mg 04/25/21 12:50 04/27/21 11:40 Ondansetron 4 Mg/2 Ml Vial IVP 4 mg Q6HR PRN Administration Nausea / Vomiting Oxycodone HCl 5 mg 04/24/21 17:45 04/27/21 09:17 Oxycodone 5 Mg Tablet PO 5 mg Q4HR PRN Administration Pain 5 to 7 Polyethylene Glycol 17 gm 04/27/21 09:00 04/27/21 09:17 Polyethylene Glycol 3350 17 Gm Packet PO Not Given DAILY KYLE Sodium Chloride 10 ml 04/24/21 17:45 04/25/21 19:47 Sodium Chloride Flush 0.9% 10 Ml Syringe IVP 10 ml PRN PRN Administration NEEDED PER PROVIDER ORDERS Sodium Chloride 10 ml 04/25/21 01:00 04/27/21 09:18 Sodium Chloride Flush 0.9% 10 Ml Syringe IVP 10 ml 0100,0900,1700 KYLE Administration Zolpidem Tartrate 5 mg 04/24/21 20:24 04/24/21 21:14 Zolpidem 5 Mg Tablet PO 5 mg QPM PRN Administration Insomnia - Lab Result Lab results reviewed: Yes Fish Bone Diagrams: 04/27/21 04:40 04/27/21 04:40 - Additional Planning Condition/Complexity: Stable My Orders: My Active Orders 04/27/21 09:00 polyethylene glycoL 3350 [Miralax] 17 gm PO DAILY Plan Discussed with:: Family, Spouse Time Spent: 15-30 minutes Subjective - Subjective Patient Reports: Feeling Better Objective Vital Signs: Vital Signs - 24 hr 04/26/21 04/27/21 04/27/21 15:53 00:35 08:00 Temperature 37 C 37.1 C 36.5 C Heart Rate [ 71 71 67 Brachial] Respiratory 22 20 18 Rate Blood Pressure 123/67 131/74 H 144/79 H [Right Brachial artery] O2 Saturation 95 94 95 Oxygen O2 Source Room air I&O (Last 24 Hrs): Intake and Output Totals x24h 04/25/21 04/26/21 04/27/21 23:59 23:59 23:59 Intake Total 2568.75 2690 2630 Output Total 1150 1975 800 Balance 1418.75 715 1830 General: Alert, Oriented x3, Cooperative HEENT: Atraumatic Neck: Supple, No JVD Neuro: Alert, CN 2-12 Grossly Intact Cardiovascular: Regular rate, Normal S1, Normal S2 Respiratory: Other (Pectus excavatum) Abdomen: Normal bowel sounds Extremities: No cyanosis, No edema Skin: No significant lesion (wound healing well) - Results Results: Laboratory Results WBC 10.6 x10^3/uL (4.8-10.8) 04/27/21 04:40 RBC 3.18 10^6/uL (4.70-6.10) L 04/27/21 04:40 Hgb 11.0 g/dL (14.0-18.0) L 04/27/21 04:40 Hct 31.1 % (42.0-52.0) L 04/27/21 04:40 MCV 97.8 fL (80.0-94.0) H 04/27/21 04:40 MCH 34.6 pg (27.0-31.0) H 04/27/21 04:40 MCHC 35.4 g/dL (32.0-36.0) 04/27/21 04:40 RDW 13.3 % (12.0-15.0) 04/27/21 04:40 Plt Count 143 10^3/uL (130-450) 04/27/21 04:40 MPV 10.8 fL (7.4-11.4) 04/27/21 04:40 Neut # (Auto) 6.3 10^3/uL (1.5-6.6) 04/24/21 17:42 Lymph # (Auto) 1.0 10^3/uL (1.5-3.5) L 04/24/21 17:42 [place] # (Auto) 0.6 10^3/uL (0.0-1.0) 04/24/21 17:42 Eos # (Auto) 0.2 10^3/uL (0.0-0.7) 04/24/21 17:42 Baso # (Auto) 0.0 10^3/uL (0.0-0.1) 04/24/21 17:42 Absolute Nucleated RBC 0.00 x10^3/uL 04/24/21 17:42 Nucleated RBC % 0.0 /100WBC 04/24/21 17:42 PT 12.5 secs (9.9-12.6) 04/24/21 18:00 INR 1.1 (0.8-1.2) 04/24/21 18:00 APTT 28.3 secs (24.9-33.3) 04/24/21 18:00 Sodium 131 mmol/L (135-145) L 04/27/21 04:40 Potassium 4.2 mmol/L (3.5-5.0) 04/27/21 04:40 Chloride 97 mmol/L (101-111) L 04/27/21 04:40 Carbon Dioxide 26 mmol/L (21-32) 04/27/21 04:40 Anion Gap 8.0 (6-13) 04/27/21 04:40 BUN 20 mg/dL (6-20) 04/27/21 04:40 Creatinine 0.9 mg/dL (0.6-1.2) 04/27/21 04:40 Estimated GFR (MDRD) 81 (>89) L 04/27/21 04:40 Glucose 130 mg/dL (70-100) H 04/27/21 04:40 Calcium 8.3 mg/dL (8.5-10.3) L 04/27/21 04:40 Total Bilirubin 1.0 mg/dL (0.2-1.0) 04/24/21 18:00 AST 21 IU/L (10-42) 04/24/21 18:00 ALT 23 IU/L (10-60) 04/24/21 18:00 Alkaline Phosphatase 73 IU/L (42-121) 04/24/21 18:00 Total Protein 6.6 g/dL (6.7-8.2) L 04/24/21 18:00 Albumin 4.4 g/dL (3.2-5.5) 04/24/21 18:00 Globulin 2.2 g/dL (2.1-4.2) 04/24/21 18:00 Albumin/Globulin Ratio 2.0 (1.0-2.2) 04/24/21 18:00 Lipase 33 U/L (22-51) 04/24/21 18:00 Nasal Adenovirus (PCR) NOT DETECTED 04/24/21 17:57 Nasal B. parapertussis DNA (PCR) NOT DETECTED 04/24/21 17:57 Nasal Coronavir 229E PCR NOT DETECTED 04/24/21 17:57 Nasal Coronavir HKU1 PCR NOT DETECTED 04/24/21 17:57 Nasal Coronavir NL63 PCR NOT DETECTED 04/24/21 17:57 Nasal Coronavir OC43 PCR NOT DETECTED 04/24/21 17:57 Nasal Enterovir/Rhinovir PCR NOT DETECTED 04/24/21 17:57 Nasal Influenza B PCR NOT DETECTED 04/24/21 17:57 Nasal Influenza A PCR NOT DETECTED 04/24/21 17:57 Nasal Parainfluen 1 PCR NOT DETECTED 04/24/21 17:57 Nasal Parainfluen 2 PCR NOT DETECTED 04/24/21 17:57 Nasal Parainfluen 3 PCR NOT DETECTED 04/24/21 17:57 Nasal Parainfluen 4 PCR NOT DETECTED 04/24/21 17:57 Nasal RSV (PCR) NOT DETECTED 04/24/21 17:57 Nasal B.pertussis DNA PCR NOT DETECTED 04/24/21 17:57 Nasal C.pneumoniae (PCR) NOT DETECTED 04/24/21 17:57 Mehrdad Human Metapneumo PCR NOT DETECTED 04/24/21 17:57 Nasal M.pneumoniae (PCR) NOT DETECTED 04/24/21 17:57 Nasal SARS-CoV-2 (PCR) NOT DETECTED 04/24/21 17:57 - Procedures Procedures: Procedures CATARAC PHACOEMULS/ASPIR (11/03/14) INSERT LENS AT CATAR EXT (11/03/14) ABX Reporting Has patient been on IV antibiotics over the past 48 hours?: No Current Medications - Current Medications Current Medications: Current Medications Generic Name Dose Route Start Last Admin Trade Name Freq PRN Reason Stop Dose Admin Acetaminophen 650 - 975 mg 04/25/21 12:50 04/27/21 09:18 Acetaminophen 325 Mg Tablet PO 650 mg Q4HR PRN Administration PAIN Aspirin 81 mg 04/26/21 09:00 04/26/21 20:48 Aspirin Ec 81 Mg Tablet PO 81 mg BID KYLE Administration Calcium Carbonate/Glycine 500 mg 04/26/21 09:00 04/27/21 09:17 Calcium Carbonate Chew 500 Mg Tablet PO 500 mg BID KYLE Administration Enoxaparin Sodium 40 mg 04/26/21 09:00 04/27/21 09:17 Enoxaparin 40 Mg/0.4 Ml Syringe SUBQ 40 mg DAILY KYLE Administration Morphine Sulfate 2 mg 04/24/21 17:45 04/26/21 05:33 Morphine 2 Mg/Ml Carpuject IVP 2 mg Q2HR PRN Administration Pain 8 to 10 Ondansetron HCl 4 mg 04/25/21 12:50 04/27/21 11:40 Ondansetron 4 Mg/2 Ml Vial IVP 4 mg Q6HR PRN Administration Nausea / Vomiting Oxycodone HCl 5 mg 04/24/21 17:45 04/27/21 09:17 Oxycodone 5 Mg Tablet PO 5 mg Q4HR PRN Administration Pain 5 to 7 Polyethylene Glycol 17 gm 04/27/21 09:00 04/27/21 09:17 Polyethylene Glycol 3350 17 Gm Packet PO Not Given DAILY KYLE Sodium Chloride 10 ml 04/24/21 17:45 04/25/21 19:47 Sodium Chloride Flush 0.9% 10 Ml Syringe IVP 10 ml PRN PRN Administration NEEDED PER PROVIDER ORDERS Sodium Chloride 10 ml 04/25/21 01:00 04/27/21 09:18 Sodium Chloride Flush 0.9% 10 Ml Syringe IVP 10 ml 0100,0900,1700 KLYE Administration Zolpidem Tartrate 5 mg 04/24/21 20:24 04/24/21 21:14 Zolpidem 5 Mg Tablet PO 5 mg QPM PRN Administration Insomnia
[2021-04-27] MEDS: ASPIRIN EC 81 MG TABLET PO SCH (20:41)
[2021-04-28] MEDS: SODIUM CHLORIDE FLUSH 0.9% 10 ML SYRINGE IVP SCH ×2 (03:56→08:21)
[2021-04-28] MEDS: ACETAMINOPHEN 325 MG TABLET PO PRN ×2 (05:40→12:32)
[2021-04-28] MEDS: oxyCODONE 5 MG TABLET PO PRN ×2 (05:41→12:32)
[2021-04-28 07:54] VITALS: BP 105/60
[2021-04-28] MEDS: ASPIRIN EC 81 MG TABLET PO SCH (08:20)
[2021-04-28] MEDS: ENOXAPARIN 40 MG/0.4 ML SYRINGE SUBQ SCH (08:20)
[2021-04-28] MEDS: CALCIUM CARBONATE CHEW 500 MG TABLET PO SCH (08:21)
[2021-04-28] MEDS ORDERED: CHOLECALCIFEROL 25 MCG TABLET PO SCH (09:00)
--- NOTE | 2021-04-28 11:54 | Discharge Plan ---
Discharge Plan Problem Reviewed?: Yes Disposition: [facility] DC/Xfer Condition: Stable Prescriptions: Aspirin EC [Ecotrin] 81 mg PO BID #60 tablet HYDROcod/ACETAM 5/325 [[place] 5/325] 1 tab PO Q4H PRN #20 tablet PRN Reason: Pain Calcium Carbonate [Tums (Calcium Carbonate 500mg)] 500 mg PO BID #60 tablet Cholecalciferol [Vitamin D3] 50 mcg PO DAILY #30 tablet Diet: Cardiac Activity Restrictions: Wt Bearing as Tolerated Shower Restrictions: No Assistance Devices: Walker Weight Bearing: Full Weight Instruction Topics: Fx Hip Surg Hospital After, Fx Hip Surg Home Recovery, Fx Hip Surg Dc Health Concerns: None Plan of Treatment: Rehab Care Goals: Resume prior level of function Additional Instructions or Follow Up instructions: Follow up with orthopedic surgery in 1 week No Smoking: If you smoke, Please STOP! Call for help. Follow-up with: Gustavo Vogel MD [Provider Admit Priv/Credential] -
--- NOTE | 2021-04-28 12:22 | Discharge Plan ---
"Discharge Plan for SNF / PRISON - Discharge Plan And Transition Orders Problem Reviewed?: Yes Disposition: 03 SNF DC/Xfer Condition: Stable Allergies and Adverse Reactions: Allergies Allergy/AdvReac Type Severity Reaction Status Date / Time No Known Drug Allergies Allergy Verified 04/24/21 16:41 Health Concerns: None Plan of Treatment: Rehab Care Goals: Resume prior level of function - SNF / PRISON Transition Orders Admit to (Facility): [facility] Discharge Diagnosis: Femoral neck fracture left hip CAD Hyperlipidemia BPH Medicare Certification Statement: I certify that Post Hospital usp care is medically necessary on a continuing basis for any of the conditions for which she/he is receiving care during hospitalization. Notify PCP of admission and forward orders to primary provider for signature. Weight on admission and: Weekly Other Notification Orders: Call PCP immediately if patient develops dyspnea, chest pain/tightness or edema. Additional Bowel Program Orders: If no BM after 2 days, nurse may give M.O.M. 30ml PO PRN and/or ducolax Supp 1 MI and/or ANTHONY 250mg P.O., and/or senna 1-2 tabs PO. On day 3 nurse may give repeat above order until residents constipation is resolved. Annual Influenza Vaccine (between Mar 22 and October 19): Yes Two-step PPD per [facility] [phone] or approved exception documents: Yes Medication Orders: PLEASE REFER TO THE DISCHARGE MEDICATION LIST. Insulin Orders?: No - Medications New Prescriptions: Aspirin EC [Ecotrin] 81 mg PO BID #60 tablet HYDROcod/ACETAM 5/325 [[place] 5/325] 1 tab PO Q4H PRN #20 tablet PRN Reason: Pain Calcium Carbonate [Tums (Calcium Carbonate 500mg)] 500 mg PO BID #60 tablet Cholecalciferol [Vitamin D3] 50 mcg PO DAILY #30 tablet - Diet Type: Geriatric Texture: Regular Liquids: Thin May have monthly special meal: Yes - Therapies | Activity Therapy: Evaluation | Treat if indicated: PT, OT Rehabilitation Potential: Maximize functional status, Return to independent living Activity: Wt Bearing as Tolerated Weight Bearing: Full Weight Assistance Devices: Walker Additional Instructions: Follow up with orthopedic surgery in 1 week"
--- NOTE | 2021-04-28 12:24 | DISCHARGE SUMMARY ---
"Discharge Summary Admit Date: 04/24/21 Discharge Date: 04/28/21 Discharging Provider: Lewis Saravia MD Code Status: Attempt Resuscitation Condition at Discharge: Stable Discharge Disposition: 03 SNF DC/Xfer Discharge Facility Name: [facility] - DIAGNOSES Admission Diagnoses: Fracture of left hip CAD Hyperlipidemia BPH Left foot drop Discharge Diagnoses with Status of Each Condition: Fracture of left hip - Repaired CAD - Stable Hyperlipidemia - Stable BPH - Stable Left foot drop - Stable - HPI History of Present Illness: Kedar is an 81-year-old male, as of today (1940), who is a fairly healthy and active gentleman who fell while [place] the boat [place] the dock and presumably landed on his left side and has sustained a left hip fracture. He presented to the emergency department for left hip pain.He has a past medical history suggestive of coronary artery disease status post stent more than 10 years ago,Hyperlipidemia, hypertension, and BPH as well as a currently being worked up for left-sided foot drop and balance disturbance. Patient states he is currently in physical therapy for this problem. He has been seen by neurosurgery for the left foot drop but has not had surgery and was referred to physical therapy. He does not have a diagnosis yet. He is not sure if this contributed to the fall which led to him breaking his left hip. In the emergency room, his evaluation was inclusive of lab work, with results not yet available, and a hip x-ray, again with report not yet available but per Dr. Dumont, showing a impacted left femoral neck fracture. Orthopedic surgery was consulted by the ED, and has been accepted for surgery tomorrow and hospitalist service was requested to admit the patient.At the time of admission, EKG was not yet obtained, nor was Chest x-ray. - CONSULTS | PROCEDURES Consultations: Dr Gustavo Vogel, Orthopedic Surgery Procedures: Left Hip Hemiarthroplasty - HOSPITAL COURSE Hospital Course: Patient had a successful left Hip hemiarthroplasty with no complications. He tolerated the procedure well. He responded well to physical therapy. There were no medical complications. His vital signs were within normal limits. No significant no medication changes were made. After physical therapy evaluation seems deemed to be a very good candidate for custodial facility placement. - ALLERGIES Allergies/Adverse Reactions: Allergies Allergy/AdvReac Type Severity Reaction Status Date / Time No Known Drug Allergies Allergy Verified 04/24/21 16:41 - MEDICATIONS Home Medications: Ambulatory Orders Medication Instructions Recorded Confirmed Lisinopril 20 mg PO DAILY 10/15/13 04/25/21 Tamsulosin [Flomax] 0.4 mg PO DAILY 10/15/13 04/25/21 Nitroglycerin [Nitrostat] 0.4 mg SL Q5MIN PRN #20 tablet 04/03/21 04/25/21 Rosuvastatin Calcium [Crestor] 10 mg PO QPM 04/24/21 04/25/21 Ascorbic Acid [Vitamin C] 1,000 mg PO DAILY 04/25/21 04/25/21 Cetirizine [ZyrTEC] 10 mg PO DAILY 04/25/21 04/25/21 Multivitamin [Theragran] 1 each PO DAILY 04/25/21 04/25/21 Aspirin EC [Ecotrin] 81 mg PO BID #60 tablet 04/28/21 Calcium Carbonate [Tums (Calcium 500 mg PO BID #60 tablet 04/28/21 Carbonate 500mg)] Cholecalciferol [Vitamin D3] 50 mcg PO DAILY #30 tablet 04/28/21 HYDROcod/ACETAM 5/325 [[place] 5/325] 1 tab PO Q4H PRN #20 tablet 04/28/21 - PHYSICAL EXAM AT DISCHARGE General Appearance: positive: No acute distress Eyes Bilateral: positive: Normal inspection Skin: positive: Color nml Extremities: positive: No pedal edema Neurologic/Psychiatric: positive: Oriented x3, CN's nml (2-12) - LABS Result Diagrams: 04/27/21 04:40 04/27/21 04:40 - FOLLOW UP Follow Up: Follow up with PCP and Dr Vogel (Ortho) - TIME SPENT Time Spent in Discharge (Minutes): 38"
[2021-04-28 13:31] LABS: B. PARAPERTUSSIS- RESP PCR PAN NOT DETECTED; B. PERTUSSIS- RESP PCR PANEL NOT DETECTED; C. PNEUMONIAE- RESP PCR PANEL NOT DETECTED; CORONAVIRUS 229E-RESP PCR NOT DETECTED; CORONAVIRUS HKU1-RESP PCR NOT DETECTED; CORONAVIRUS NL63-RESP PCR NOT DETECTED; CORONAVIRUS OC43-RESP PCR NOT DETECTED; HUMAN METAPNEUMOVIRUS NOT DETECTED; INFLUENZA A- RESP PCR PANEL NOT DETECTED; INFLUENZA B - RESP PCR PANEL NOT DETECTED; PARAINFLUENZA VIRUS 1 NOT DETECTED; PARAINFLUENZA VIRUS 2 NOT DETECTED; PARAINFLUENZA VIRUS 3 NOT DETECTED; PARAINFLUENZA VIRUS 4 NOT DETECTED; RHINOVIRUS/ENTEROVIRUS NOT DETECTED; SARS-CoV-2 -RESP PCR PANEL NOT DETECTED
[2021-04-28 13:32] LABS: M. PNEUMONIAE- RESP PCR PANEL NOT DETECTED; RSV- RESP PCR PANEL NOT DETECTED
== END 2021-04-28 14:21 | DRG 522 ==
LOC: EDUNIT# → ED 16:36 → MS2 17:45
PROVIDERS: ADMIT Family Medicine Sports Medicine; ATTEND Family Medicine Sports Medicine
PROC: 0SRS019 Replacement of Left Hip Joint, Femoral Surface with Metal Synthetic Substitute, Cemented, Open Approach (ICD-10-PCS; principal; 2021-04-25 13:00)
DX: S72.002A Fracture of unspecified part of neck of left femur, initial encounter for closed fracture (principal); W18.30XA Fall on same level, unspecified, initial encounter; W17.89XA Other fall from one level to another, initial encounter; Y93.19 Activity, other involving water and watercraft; I10 Essential (primary) hypertension; I25.10 Atherosclerotic heart disease of native coronary artery without angina pectoris; E78.5 Hyperlipidemia, unspecified; Z20.822 Contact with and (suspected) exposure to COVID-19; M21.372 Foot drop, left foot; N40.0 Benign prostatic hyperplasia without lower urinary tract symptoms; R31.9 Hematuria, unspecified; H54.7 Unspecified visual loss; H91.90 Unspecified hearing loss, unspecified ear; M19.90 Unspecified osteoarthritis, unspecified site; I25.2 Old myocardial infarction; Z95.5 Presence of coronary angioplasty implant and graft; Z79.02 Long term (current) use of antithrombotics/antiplatelets; Z79.899 Other long term (current) drug therapy
CPT/HCPCS: 36415; 71045; 72170; 73502; 80048; 80053; 83690; 85025; 85027; 85610; 85730; 87631; 93005; 97110; 97116; 97162; 97165; 97530; 99285; A9270; C1713; J1650; J3370; J7120; 0202U; 87635

== ENCOUNTER 2021-07-06 11:00 | Outpatient (CLI) | payer MEDICARE, OTHER ==
--- NOTE | 2021-07-06 11:48 | XRAY Report ---
PROCEDURE: Hip w/Pelvis 1V LT INDICATIONS: HX OF L HIP HEMIARTHROPLASTY TECHNIQUE: AP pelvis with lateral view(s) of the left hip(s). COMPARISON: 04/25/2021 FINDINGS: Bones: Postoperative changes of left hip arthroplasty with a bipolar hip replacement. There is no per icardial hardware lucency or fracture. The right hip has severe degenerative changes consistent with osteoarthritis. No acute fractures or dislocations. Pelvic ring appears intact. No suspicious bony lesions. Soft tissues: The visualized bowel gas pattern is normal. No suspicious soft tissue calcifications. Vasculature has atherosclerotic calcifications. IMPRESSION: 1. Postoperative changes of left hip replacement without complication. 2. Severe degenerative changes of the right hip consistent with osteoarthritis. Reviewed by: Forest Armstrong on 07/06/2021 11:47 AM PST Approved by: Forest Armstrong on 07/06/2021 11:47 AM PST Station ID: [id number]
== END 2021-07-06 23:59 | disposition home or self-care (01) ==
LOC: DI.N 11:00
PROVIDERS: ATTEND Physician Assistant
DX: M16.11 Unilateral primary osteoarthritis, right hip (principal); Z96.642 Presence of left artificial hip joint

== ENCOUNTER 2021-09-27 16:05 | Outpatient (CLI) | payer MEDICARE, OTHER ==
--- NOTE | 2021-09-27 16:47 | Ultrasound Report ---
PROCEDURE: Bladder INDICATIONS: URGE INCONTINENCE TECHNIQUE: Real-time scanning was performed of the bladder, with image documentation. COMPARISON: None. FINDINGS: URINARY BLADDER: Prevoid volume: 298 mL. Post void volume: 92 mL. Both ureteral jets are visualized. OTHER: Enlargement of the prostate, measuring 6 x 4.1 x 5.4 cm. IMPRESSION: 1.Post void residual as detailed above. Reviewed by: Miguel Rosado MD on 09/27/2021 4:45 PM [facility] Approved by: Miguel Rosado MD on 09/27/2021 4:45 PM [facility] Station ID: [id number]
== END 2021-09-27 16:06 | disposition home or self-care (01) ==
LOC: DI 16:05
PROVIDERS: ATTEND Physician Assistant
DX: N39.41 Urge incontinence (principal); R39.14 Feeling of incomplete bladder emptying

== ENCOUNTER 2022-01-02 06:00 | Outpatient (CLI) | payer MEDICARE, OTHER ==
--- NOTE | 2022-01-02 12:43 | XRAY Report ---
PROCEDURE: Hip 2 View LT INDICATIONS: HIP ARTHROPLASTY TECHNIQUE: 2 views of the hip were acquired. COMPARISON: 07/06/2021 FINDINGS: Bones: Expected appearance of total left hip arthroplasty. No evidence of hardware failure or looseni ng. No fractures or dislocations. No suspicious bony lesions. The visualized pelvic ring appears in tact. Soft tissues: No suspicious soft tissue calcifications or masses. IMPRESSION: Expected appearance of total left hip arthroplasty. Reviewed by: Jose Arriaga MD on 01/02/2022 12:42 PM PDT Approved by: Jose Arriaga MD on 01/02/2022 12:42 PM PDT Station ID: [id number]
== END 2022-01-02 23:59 | disposition home or self-care (01) ==
LOC: DI.WOS 06:00
PROVIDERS: ATTEND Physician Assistant
DX: Z96.642 Presence of left artificial hip joint (principal)

== ENCOUNTER 2022-11-25 12:27 | Emergency (ER) | payer MEDICARE, OTHER ==
[2022-11-25 12:43] VITALS: BP 145/77
[2022-11-25] MEDS ORDERED: MOLNUPIRAVIR PREPACK PO STA (12:44)
--- NOTE | 2022-11-25 12:44 | ED Physician Documentation ---
History of Present Illness - Stated complaint Stated Complaint: C+ - History obtained from History obtained from: Patient - Additonal information Additional information: 82-year-old gentleman with history of coronary disease, BPH but no history of renal disease presents for evaluation for potential antiviral therapy. He and his both tested positive for COVID last night, but he really does not have any symptoms. Specifically no sore throat, runny nose, body aches, cough, shortness of breath, or chills. PD PAST MEDICAL HISTORY - Past Medical History Cardiovascular: Hypertension, [place], Other Respiratory: None Neuro: CVA, Other Endocrine/Autoimmune: None GI: None : Benign prostate hypertrophy HEENT: Chronic vision loss, Chronic hearing loss Psych: None Musculoskeletal: Osteoarthritis Derm: None - Past Surgical History Past Surgical History: Yes General: Hiatal hernia repair Cardiovascular: Coronary stent - Present Medications Home Medications: Ambulatory Orders Medication Instructions Recorded Confirmed Lisinopril 20 mg PO DAILY 10/15/13 04/25/21 Tamsulosin [Flomax] 0.4 mg PO DAILY 10/15/13 04/25/21 Nitroglycerin [Nitrostat] 0.4 mg SL Q5MIN PRN #20 tablet 04/03/21 04/25/21 Rosuvastatin Calcium [Crestor] 10 mg PO QPM 04/24/21 04/25/21 Ascorbic Acid [Vitamin C] 1,000 mg PO DAILY 04/25/21 04/25/21 Cetirizine [ZyrTEC] 10 mg PO DAILY 04/25/21 04/25/21 Multivitamin [Theragran] 1 each PO DAILY 04/25/21 04/25/21 Aspirin EC [Ecotrin] 81 mg PO BID #60 tablet 04/28/21 Calcium Carbonate [Tums (Calcium 500 mg PO BID #60 tablet 04/28/21 Carbonate 500mg)] Cholecalciferol [Vitamin D3] 50 mcg PO DAILY #30 tablet 04/28/21 HYDROcod/ACETAM 5/325 [[place] 5/325] 1 tab PO Q4H PRN #20 tablet 04/28/21 - Allergies Allergies/Adverse Reactions: Allergies Allergy/AdvReac Type Severity Reaction Status Date / Time No Known Drug Allergies Allergy Verified 04/24/21 16:41 - Social History Does the pt smoke?: No Smoking Status: Never smoker Does the pt drink ETOH?: No Does the pt have substance abuse?: No - Immunizations Immunizations are current?: Yes - POLST Patient has POLST: No PD ED PE NORMAL - Vitals Vital signs reviewed: Yes - General General: No acute distress, Well developed/nourished - Respiratory Respiratory: No respiratory distress, Clear bilaterally - Derm Derm: No rash - Neuro Neuro: Alert and oriented X 3, Normal speech Results - Vitals Vitals: Oxygen O2 Source Room air PD Medical Decision Making - ED course ED course: 82-year-old with COVID, tested positive last night at the same time as his . Given his age and comorbidities antivirals are reasonable. He is asymptomatic. He is on tamsulosin but still has significant prostatic symptoms so moln upiravir was chosen over paxlovid. Departure - Departure Disposition: 01 Home, Self Care Clinical Impression: COVID-19 Condition: Good Record reviewed to determine appropriate education?: Yes Instructions: ED Viral Syndrome Comments: Take the antiviral, molnupiravir as directed. Return for new or worsening symptoms. You need to quarantine strictly for the next 5 days, after that, continue to quarantine and wear a mask but it is okay to go out a little bit just not in crowded settings or unnecessarily.
== END 2022-11-25 13:01 | disposition home or self-care (01) ==
LOC: ED 12:27
DX: U07.1 COVID-19 (principal); Z86.79 Personal history of other diseases of the circulatory system; Z87.448 Personal history of other diseases of urinary system
CPT/HCPCS: 99282; J3490

== ENCOUNTER 2022-12-05 13:01 | Outpatient (CLI) | payer MEDICARE, OTHER ==
--- NOTE | 2022-12-05 14:33 | XRAY Report ---
PROCEDURE: Hip w/Pelvis 2-3V LT INDICATIONS: PAIN IN LEFT HIP TECHNIQUE: AP pelvis with lateral view(s) of the left hip(s). COMPARISON: None. FINDINGS: Bones: No fractures or dislocations. No suspicious bony lesions. Expected appearance of left hip hemiarthroplasty with no evidence of hardware failure or loosening. Severe right hip degenerative art hritis. Soft tissues: No suspicious soft tissue calcifications or masses. IMPRESSION: No acute bony abnormality. Expected appearance of left hip hemiarthroplasty. Severe right degenerative arthritis. Reviewed by: Jose Arriaga MD on 12/05/2022 2:32 PM PDT Approved by: Jose Arriaga MD on 12/05/2022 2:32 PM PDT Station ID: [id number]
== END 2022-12-05 13:02 | disposition home or self-care (01) ==
LOC: DI 13:01
PROVIDERS: ATTEND Student in an Organized Health Care Education/Training Program
DX: M25.552 Pain in left hip (principal); M16.11 Unilateral primary osteoarthritis, right hip; Z96.642 Presence of left artificial hip joint

== ENCOUNTER 2023-05-06 15:43 | Outpatient (CLI) | payer MEDICARE, OTHER ==
--- NOTE | 2023-05-06 17:03 | XRAY Report ---
PROCEDURE: Chest 2 View X-Ray INDICATIONS: COUGH TECHNIQUE: 2 views of the chest were acquired. COMPARISON: None. FINDINGS: Surgical changes and devices: None. Lungs and pleura: No pleural effusions or pneumothorax. Mildly increased vascular markings in bilate ral hilar region are seen. No definite focal infiltrate. Mediastinum: Mediastinal contours appear normal. Heart size is enlarged. Bones and chest wall: No suspicious bony lesions. Overlying soft tissues appear unremarkable. IMPRESSION: Is suggestive of reactive airway disease such as bronchitis or viral illness. No definite focal infil trate. No pleural effusion or pneumothorax. Reviewed by: Yusef Casas MD on 05/06/2023 5:02 PM PDT Approved by: Yusef Casas MD on 05/06/2023 5:02 PM PDT Station ID: [id number]
== END 2023-05-06 15:44 | disposition home or self-care (01) ==
LOC: DI 15:43
PROVIDERS: ATTEND Internal Medicine
DX: R05.9 Cough, unspecified (principal)